=== PATIENT | male | born 1965 | race Caucasian/White ===

== ENCOUNTER → 2019-10-26 19:23 | Outpatient (ROUT) | payer OTHER, SELFPAY ==
[2019-10-26 19:49] LABS: Add Manual Diff / Slide Review NO; Basophils Absolute Auto 0 /uL (0-100); Basophils Percent Auto 0.3 % (0-2); Eosinophils Absolute Auto 100 /uL (0-450); Hemoglobin 15.2 g/dL (13.5-17.5); Lymphocytes Absolute Auto 900 /uL (1100-4500); Lymphocytes Percent Auto 15.7 % (25-40); Mean Corpuscular HGB Conc 33.7 % (30-36); Mean Corpuscular Hemoglobin 32.4 PG (26-34); Mean Corpuscular Volume 96.2 fL (80-100); Monocytes Absolute Auto 600 /uL (0-900); Monocytes Percent Auto 11.5 % (3-14); Neutrophils Absolute Auto 4000 /uL (1500-7000); Neutrophils Percent Auto 71.5 % (50-75); Platelet Count 172 X10^3/uL (150-400); Red Blood Cell Count 4.68 X10^6/uL (4.5-5.9); Red Cell Distribution Width 12.6 % (11.6-14.8); White Blood Cell Count 5.6 X10^3/uL (4.5-11.0)
[2019-10-26 19:56] LABS: Alanine Aminotransferase 56 IU/L (<50); Albumin 4.3 g/dL (3.5-5.0); Albumin Globulin Ratio 1.5 (1.0-2.8); Alkaline Phosphatase 106 U/L (38-126); Aspartate Aminotransferase 50 IU/L (17-59); BUN Creatinine Ratio 16.9 (6-22); Bilirubin Total 0.6 mg/dL (0.2-1.3); Blood Urea Nitrogen 12 mg/dL (9-20); Carbon Dioxide 25 mmol/L (22-32); Chloride 99 mmol/L (98-107); Cholesterol 199 mg/dL (140-199); Estimated Glomerular Filt Rate > 60.0 mL/min (>60); Globulin 2.8 g/dL (1.7-4.1); Glucose 121 mg/dL (70-100); HDL Cholesterol 66 mg/dL (40-60); HEMOLYSIS 22 (0-50); LDL Cholesterol Calculated 96 mg/dL (<100); Potassium 4.5 mmol/L (3.4-5.1); Sodium 133 mmol/L (137-145); Total Protein 7.1 g/dL (6.3-8.2); Triglycerides 184 mg/dL (35-150)
[2019-10-26 20:22] LABS: TSH w/ Reflex to FT4 1.74 uIU/mL (0.47-4.68)
[2019-10-26 20:23] LABS: Prostate Specific Antigen 0.425 ng/mL (0.10-4.00)
== END ==
PROVIDERS: PCP Physician Assistant; Visit Provider Internal Medicine
DX: Z00.00 Encounter for general adult medical examination without abnormal findings (principal); C81.3 Lymphocyte depleted Hodgkin lymphoma; E03.9 Hypothyroidism, unspecified
CPT/HCPCS: 80053; 80061; 84153; 84443; 85025

== ENCOUNTER 2021-06-07 00:22 | Emergency (ER) | payer OTHER, SELFPAY ==
[2021-06-07 00:29] VITALS: BP 194/103; PULSE 92; RESP 16; TEMP 36.5; O2SAT 97; BMI 27.1
--- NOTE | 2021-06-07 00:52 | ED_ITS ---
HPI - General Adult General Chief complaint: Abdominal Pain Stated complaint: RT SIDE PAIN Time Seen by Provider: 06/07/21 00:29 Source: patient Mode of arrival: Ambulatory Limitations: no limitations History of Present Illness HPI narrative: 55-year-old male who is here for evaluation of right-sided flank pain and abdominal pain. He states that throughout the day today he has had some urinary symptoms and urinary frequency and dark colored urine. He has never had a kidney stone in the past. This evening started to have increasing pain in his right side. Not made worse with palpation or movement. No fevers. No skin rashes. Has not tried anything for symptoms prior to arrival. He does state that it occasionally radiates down to his groin. Related Data Home Medications Medication Instructions Recorded Confirmed levothyroxine 50 mcg tablet 100 mcg OR QDAY #0 06/17/16 (Synthroid) metoprolol succinate 25 mg 25 mg PO QDAY #0 06/17/16 tablet,extended release 24 hr (Toprol XL) VITAMIN D (Vitamin D3) 1,000 units PO QDAY #0 06/26/16 vitamin B complex (B 1 tab PO QDAY #0 06/26/16 Complex-Vitamin B12) zinc gluconate 50 mg tablet 50 mg PO #0 06/26/16 Allergies Allergy/AdvReac Type Severity Reaction Status Date / Time No Known Drug Allergies Allergy Verified 06/07/21 00:31 Review of Systems Constitutional Constitutional: Denies fever(s) Gastrointestinal Gastrointestinal: Reports as per HPI and Reports system reviewed and no additional complaints, except as documented Genitourinary Genitourinary: Reports system reviewed and no additional complaints, except as documented and Reports as per HPI Musculoskeletal Musculoskeletal: Reports system reviewed and no additional complaints, except as documented and Reports as per HPI Integumentary/Breasts Skin/Breast: Reports system reviewed and no additional complaints, except as documented Hematologic/Lymphatic On Anticoagulants: No Patient History Medical History Hypothyroid tobacco type: smokeless tobacco alcohol intake frequency: 0-2 drinks per day Substance Use Type: does not use Exam Initial Vital Signs Initial Vital Signs: Vital Signs Temperature 97.7 F 06/07/21 00:29 Pulse Rate 92 H 06/07/21 00:29 Respiratory Rate 16 06/07/21 00:29 Blood Pressure 194/103 H 06/07/21 00:29 Pulse Oximetry 97 06/07/21 00:29 HENMT Head: normal to inspection and normocephalic Resp Effort & Inspection: normal respiratory effort Auscultation: clear to auscultation bilaterally Cardio Rate: regular rate Rhythm: regular rhythm GI Inspection: normal to inspection and non-distended Palpation: soft, No firm, No guarding and tender (Right flank) Back/Spine/Pelvis Back: No CVA tenderness Skin General: no rashes or lesions noted Neuro General: patient alert, patient awake, patient oriented x3 and moves all extremities Extrem General: normal to inspection and capillary refill normal Psych Appearance: grossly normal and well kempt Course Orders Ordered: ED Orders 06/07/21 00:53 CT kidney ureter bladder (KUB) Stat Urine Microscopic Stat 06/07/21 01:00 Basic Metabolic Panel Stat Complete Blood Count AUTO DIFF Stat Discontinued Medications Hydrocodone Bitart/Acetaminophen (Hydrocodone/Acet 5/325 Prepack) 1 bottle MISC SEEINSTR ONE Stop: 06/07/21 01:55 Last Admin: 06/07/21 02:07 Dose: 1 bottle Documented by: FLOYD Ketorolac Tromethamine (Ketorolac 30 Mg/Ml Vial) 30 mg IV NOW ONE Stop: 06/07/21 00:54 Last Admin: 06/07/21 01:10 Dose: 30 mg Documented by: CHRISTINE Ondansetron HCl (Ondansetron 4 Mg/2 Ml Inj) 4 mg IV NOW ONE Stop: 06/07/21 00:54 Last Admin: 06/07/21 01:10 Dose: 4 mg Documented by: CHRISTINE Ondansetron HCl (Ondansetron 4 Mg Odt Prepack) 1 bottle MISC SEEINSTR ONE Stop: 06/07/21 01:55 Last Admin: 06/07/21 02:07 Dose: 1 bottle Documented by: FLOYD Vital Signs Vital signs: Vital Signs - 8 hr 06/07/21 00:29 06/07/21 02:00 Temperature 97.7 F Pulse Rate 92 H 96 H Respiratory Rate 16 Blood Pressure 194/103 H 164/84 H Pulse Oximetry 97 96 Medical Decision Making Lab Data Lab results reviewed: Yes I reviewed the patient's lab results. Result diagrams: 06/07/21 01:00 06/07/21 01:00 Labs: Lab Results 06/07/21 06/07/21 06/07/21 Range/Units 00:53 01:00 01:00 WBC 10.0 (4.5-11.0) X10^3/uL RBC 4.73 (4.5-5.9) X10^6/uL Hgb 15.4 (13.5-17.5) g/dL Hct 44.7 (41-53) % MCV 94.5 (80-100) fL MCH 32.6 (26-34) PG MCHC 34.5 (30-36) % RDW 12.7 (11.6-14.8) % Plt Count 159 (150-400) X10^3/uL Neut % (Auto) 85.7 H (50-75) % Lymph % (Auto) 7.5 L (25-40) % [place] % (Auto) 6.1 (3-14) % Eos % (Auto) 0.3 L (2-4) % Baso % (Auto) 0.4 (0-2) % Neut # (Auto) 8500 H (4644-6822) /uL Lymph # (Auto) 700 L (0156-6110) /uL [place] # (Auto) 600 (0-900) /uL Eos # (Auto) 0 (0-450) /uL Baso # (Auto) 0 (0-100) /uL Sodium 139 (137-145) mmol/L Potassium 4.2 (3.4-5.1) mmol/L Chloride 101 (98-107) mmol/L Carbon Dioxide 30 (22-32) mmol/L BUN 20 (9-20) mg/dL Creatinine 0.99 (0.66-1.25) mg/dL Estimated GFR > 60 (>60) mL/min BUN/Creatinine Ratio 20.2 (6-22) Glucose 169 H (70-100) mg/dL Calcium 9.3 (8.4-10.2) mg/dL Urine RBC 1-5/hpf (0-5/HPF) Urine WBC None seen (0-5/HPF) Amorphous Sediment 2+ Urine Bacteria None seen (None) Ur Culture Indicated? Cult not indicated Urine Dip Bedside Urine Glucose Negative Bedside Urine Bilirubin - Negative Bedside Urine Ketone +/- 5 Urine Specific [place] 1.015 Bedside Urine Occult Blood ++ Bedside Urine pH 7.5 Bedside Urine Protein - Negative Bedside Urine Urobilinogen - Negative Bedside Urine Nitrite - Negative Bedside Urine Leukocytes - Negative Esterase Point of care testing: Urine Dip Bedside Urine Glucose Negative Bedside Urine Bilirubin - Negative Bedside Urine Ketone +/- 5 Urine Specific [place] 1.015 Bedside Urine Occult Blood ++ Bedside Urine pH 7.5 Bedside Urine Protein - Negative Bedside Urine Urobilinogen - Negative Bedside Urine Nitrite - Negative Bedside Urine Leukocytes - Negative Esterase Imaging Data CT scan - abdomen/pelvis: Radiologist's Impression: [address] [address] [address] Scan Report Signed Patient: Qiuque Jackson MR#: [id number] : 1965 Acct:[id number] Age/Sex: 55 / M Date of Service: 06/07/21 Loc: ED Accession Number: [id number] ?? Procedure: CT kidney ureter bladder (KUB) Ordering Provider: Golden Blankenship D.O. PROCEDURE:? CT KIDNEY URETER BLADDER (KUB) ? INDICATIONS:? R sided flank pain eval for stone ? TECHNIQUE:? Axial sections were acquired from the lung bases to the pubic symphysis.? Coronal and sagittal reformats were performed.? For radiation dose reduction, the following was used: ?automated exposure control, adjustment of mA and/or kV according to patient size.? ? COMPARISON:? None. ? FINDINGS:? Image quality:? Excellent.? ? Lung bases:? Unremarkable.? ? Heart:? No significant findings. ? URINARY: Right Kidney: ? Suspect mild hydronephrosis.? No stones.? Perinephric stranding.? Right Ureter:? Stone which has passed through the right UVJ measuring 0.3 cm, ().? Mild stranding surrounding the ureter. ? Left Kidney: ? No stones or definite hydronephrosis.? Probable peripancreatic cysts. Left Ureter:? No hydroureter.? ? Bladder:? Bladder wall appears mildly thickened.? Stone near the right UVJ. ? ABDOMEN: Liver:? Hepatic steatosis.? ? Gallbladder:? Not distended.? Gallstone. Biliary ducts:? Unremarkable.? ? Pancreas:? Unremarkable.? ? Spleen:? Unremarkable.? ? Adrenal Glands:? No nodule.? ? ? Stomach and Bowel:? Stomach, small bowel loops, and colon are unremarkable.? The appendix is not dilated.? There is an appendiculolith measuring 0.7 cm, ().? Diverticulosis.? Peritoneum:? No abnormal intraperitoneal fluid.? No free air.? ? Ventral Wall: ? No hernia.? Abdominal Nodes:? No enlarged retroperitoneal or mesenteric lymph nodes.? Vessels:? Aorta and inferior vena cava are normal in size.? Moderate calcified plaque. ? PELVIS: Pelvic Organs:? Unremarkable.? ? Pelvic Nodes: Unremarkable. Miscellaneous: No inguinal hernias are seen. ? ? ? Bones:? No suspicious lesion.? DDD. ? IMPRESSION:? 1. Kidney stone which has passed through the right UVJ measuring 0.3 cm. Mild right hydroureteronephrosis. ? 2. Appendiculoith measuring 0.7 cm.? Appendix is not dilated.? No periappendiceal inflammatory change. ? 3. Cholelithiasis.? Hepatic steatosis. ? ? ? Dictated by: Jan Norman M.D. on 06/07/2021 at 1:21 ? ? Approved by: Jan Norman M.D. on 06/07/2021 at 1:31 MDM Narrative Medical decision making narrative: Patient is nontoxic appearing. Urinalysis has blood but no signs of infection. Labs are unremarkable. CT scan shows a right-sided ureteral stone which explains his presenting symptoms. I have low suspicion for appendicitis given his presentation. I did discuss the findings of the CT scan with him. We discussed return precautions and follow-up instructions. Patient be safely discharged home with symptom treatment. He expressed understanding and agreement. Discharge Plan Departure Patient Disposition: Home Clinical Impression: Renal colic on right side Instructions: Kidney Stones -- Adult Activity Restrictions/Additional Instructions: Continue to take all of your medications as directed. Use the nausea medication and pain medicine as needed. Contact your primary doctor for a follow-up. Return to the emergency department for any new or worsening symptoms. Prescriptions: No Action levothyroxine [Synthroid] 50 MCG tablet 100 mcg OR QDAY Qty: 0 0RF metoprolol succinate [Toprol XL] 25 MG tablet extended release 24 hr 25 mg PO QDAY Qty: 0 0RF vitamin B complex [B Complex-Vitamin B12] 1 EACH tablet 1 tab PO QDAY Qty: 0 0RF VITAMIN D (Vitamin D3) 1,000 units PO QDAY Qty: 0 0RF zinc gluconate 50 MG tablet 50 mg PO Qty: 0 0RF Referrals: Deandra Fatima PA-C [Primary Care Provider] -
--- NOTE | 2021-06-07 00:53 | DI.CT.S_ITS ---
PROCEDURE: CT KIDNEY URETER BLADDER (KUB) INDICATIONS: R sided flank pain eval for stone TECHNIQUE: Axial sections were acquired from the lung bases to the pubic symphysis. Coronal and sagittal reformats were performed. For radiation dose reduction, the following was used: automated exposure control, adjustment of mA and/or kV according to patient size. COMPARISON: None. FINDINGS: Image quality: Excellent. Lung bases: Unremarkable. Heart: No significant findings. URINARY: Right Kidney: Suspect mild hydronephrosis. No stones. Perinephric stranding. Right Ureter: Stone which has passed through the right UVJ measuring 0.3 cm, (279). Mild stranding surrounding the ureter. Left Kidney: No stones or definite hydronephrosis. Probable peripancreatic cysts. Left Ureter: No hydroureter. Bladder: Bladder wall appears mildly thickened. Stone near the right UVJ. ABDOMEN: Liver: Hepatic steatosis. Gallbladder: Not distended. Gallstone. Biliary ducts: Unremarkable. Pancreas: Unremarkable. Spleen: Unremarkable. Adrenal Glands: No nodule. Stomach and Bowel: Stomach, small bowel loops, and colon are unremarkable. The appendix is not dilated. There is an appendiculolith measuring 0.7 cm, (263). Diverticulosis. Peritoneum: No abnormal intraperitoneal fluid. No free air. Ventral Wall: No hernia. Abdominal Nodes: No enlarged retroperitoneal or mesenteric lymph nodes. Vessels: Aorta and inferior vena cava are normal in size. Moderate calcified plaque. PELVIS: Pelvic Organs: Unremarkable. Pelvic Nodes: Unremarkable. Miscellaneous: No inguinal hernias are seen. Bones: No suspicious lesion. DDD. IMPRESSION: 1. Kidney stone which has passed through the right UVJ measuring 0.3 cm. Mild right hydroureteronephrosis. 2. Appendiculoith measuring 0.7 cm. Appendix is not dilated. No periappendiceal inflammatory change. 3. Cholelithiasis. Hepatic steatosis. Dictated by: Jan Norman M.D. on 06/07/2021 at 1:21 Approved by: Jan Norman M.D. on 06/07/2021 at 1:31
[2021-06-07] MEDS: ONDANSETRON 4 MG/2 ML INJ IV (01:10)
[2021-06-07] MEDS: KETOROLAC 30 MG/ML VIAL IV (01:10)
[2021-06-07 01:14] LABS: Amorphous Sediment Urine 2+; Bacteria Urine None Seen; Culture Indicated Urine Cult Not Indicated; RBC Urine 1-5/HPF (0-5/HPF); WBC Urine None Seen (0-5/HPF)
[2021-06-07 01:14] LABS: Add Manual Diff / Slide Review NO; Basophils Absolute Auto 0 /uL (0-100); Basophils Percent Auto 0.4 % (0-2); Eosinophils Absolute Auto 0 /uL (0-450); Eosinophils Percent Auto 0.3 % (2-4); Hematocrit 44.7 % (41-53); Hemoglobin 15.4 g/dL (13.5-17.5); Lymphocytes Absolute Auto 700 /uL (1100-4500); Lymphocytes Percent Auto 7.5 % (25-40); Mean Corpuscular HGB Conc 34.5 % (30-36); Mean Corpuscular Hemoglobin 32.6 PG (26-34); Mean Corpuscular Volume 94.5 fL (80-100); Monocytes Absolute Auto 600 /uL (0-900); Monocytes Percent Auto 6.1 % (3-14); Neutrophils Absolute Auto 8500 /uL (1500-7000); Neutrophils Percent Auto 85.7 % (50-75); Platelet Count 159 X10^3/uL (150-400); Red Blood Cell Count 4.73 X10^6/uL (4.5-5.9); Red Cell Distribution Width 12.7 % (11.6-14.8)
[2021-06-07 01:19] LABS: BUN Creatinine Ratio 20.2 (6-22); Blood Urea Nitrogen 20 mg/dL (9-20); Calcium 9.3 mg/dL (8.4-10.2); Carbon Dioxide 30 mmol/L (22-32); Chloride 101 mmol/L (98-107); Estimated Glomerular Filt Rate > 60 mL/min (>60); Glucose 169 mg/dL (70-100); HEMOLYSIS < 15 (0-50); Potassium 4.2 mmol/L (3.4-5.1); Sodium 139 mmol/L (137-145)
[2021-06-07 02:00] VITALS: BP 164/84; PULSE 96; O2SAT 96
[2021-06-07] MEDS: ONDANSETRON 4 MG ODT PREPACK 1 BOTTLE MISC (02:07)
[2021-06-07] MEDS: HYDROCODONE/ACET 5/325 PREPACK 1 BOTTLE MISC (02:07)
== END 2021-06-07 02:09 | disposition home or self-care (01) ==
PROVIDERS: Emergency Provider Emergency Medicine; PCP Physician Assistant
DX: N20.1 Calculus of ureter (principal); F17.290 Nicotine dependence, other tobacco product, uncomplicated
CPT/HCPCS: 36415; 74176; 80048; 81003; 81015; 85025; 96374; 96375; 99283; 99284; J1885; J2405

== ENCOUNTER → 2021-10-19 06:38 | Outpatient (CLI) | payer OTHER, SELFPAY ==
--- NOTE | 2021-10-19 06:41 | DI.US.S_ITS ---
PROCEDURE: US CAROTID DOPPLER BI INDICATIONS: Screening for cardiovascular disorder TECHNIQUE: Color and pulse Doppler interrogation was performed of both carotid systems, with image documentation and velocity measurements. COMPARISON: None. FINDINGS: Stenosis calculations are based on SRU (Society of Radiologists in Ultrasound) criteria. Right side: Brachial blood pressure: 198/107 mm Hg. Common carotid artery peak systolic velocity: 84 cm/sec. Internal carotid artery peak systolic velocity: 132 cm/sec. Internal carotid artery end diastolic velocity: 33 cm/sec. External carotid artery peak systolic velocity: 318 cm/sec. ICA/CCA peak systolic ratio: 1.6 Brown scale imaging description: Mild atherosclerotic changes are seen. Percent internal carotid artery stenosis: 50-69% by velocity criteria. Vertebral artery: Flow direction is antegrade. Left side: Brachial blood pressure: 180/97 mm Hg. Common carotid artery peak systolic velocity: 121 cm/sec. Internal carotid artery peak systolic velocity: 88 cm/sec. Internal carotid artery end diastolic velocity: 20 cm/sec. External carotid artery peak systolic velocity: 143 cm/sec. ICA/CCA peak systolic ratio: 0.7 Brown scale imaging description: Minimal atherosclerotic change can be seen. Percent internal carotid artery stenosis: Less than 50% by velocity criteria Vertebral artery: Flow direction is antegrade. IMPRESSION: By velocity criteria, there is a moderate stenosis (between 50 and 69% stenosis) within the right proximal internal carotid artery. The true degree of stenosis is felt most likely to be at the lower end of this range. Prominently elevated blood pressures, with the right brachial blood pressure measuring 198/107. Greater than 50% stenosis of the right external carotid artery. Note: After consulting with the ordering physician's office, this patient was sent to the emergency department for the elevated blood pressures. Dictated by: Ugo Mabry M.D. on 10/19/2021 at 8:24 Approved by: Ugo Mabry M.D. on 10/19/2021 at 8:26
== END ==
PROVIDERS: PCP Student in an Organized Health Care Education/Training Program; Referring Provider Student in an Organized Health Care Education/Training Program; Visit Provider Student in an Organized Health Care Education/Training Program
DX: Z13.6 Encounter for screening for cardiovascular disorders (principal); I65.21 Occlusion and stenosis of right carotid artery; R03.0 Elevated blood-pressure reading, without diagnosis of hypertension
CPT/HCPCS: 93880

== ENCOUNTER 2021-10-19 07:28 | Emergency (ER) | payer OTHER, SELFPAY ==
[2021-10-19 07:30] VITALS: BP 229/122; PULSE 83; RESP 14; TEMP 36.4; O2SAT 98; BMI 27.1
--- NOTE | 2021-10-19 07:41 | ED_ITS ---
HPI - General Adult General Chief complaint: Hypertension Stated complaint: Extremely High BP- sent by DI Time Seen by Provider: 10/19/21 07:30 Source: patient Mode of arrival: Ambulatory History of Present Illness HPI narrative: 55-year-old male. History hypothyroid. Was seen in the emergency department several months ago for right-sided renal colic. On Friday of this week he went to go see his primary doctor. This was a scheduled visit. It was noted that his blood pressure was elevated. He was told to check his blood pressures at home and he was to have a follow-up appointment in approximately 1 month. He has been taking his pressures at home and they state that they have all been very elevated. He also states that during that visit the provider noticed a ?whooshing? sound in his neck so a carotid ultrasound was ordered. He had that performed this morning. It was noted during the carotid ultrasound that his blood pressure was elevated. He was told to come to the emergency department for evaluation. He currently has no symptoms. His medicine list has metoprolol listed but he states he does not take this medication. Patient denies headache, vision changes, chest pain, shortness of breath, abdominal pain, lower extremity swelling or any other symptoms. Related Data Home Medications Medication Instructions Recorded Confirmed levothyroxine 50 mcg tablet 100 mcg OR QDAY ##0 06/17/16 (Synthroid) VITAMIN D (Vitamin D3) 1,000 units PO QDAY ##0 06/26/16 vitamin B complex (B 1 tab PO QDAY ##0 06/26/16 Complex-Vitamin B12 tablet) zinc gluconate 50 mg tablet 50 mg PO ##0 06/26/16 Previous Rx's Medication Instructions Recorded lisinopril 10 mg tablet 10 mg PO DAILY #30 tabs 10/19/21 Allergies Allergy/AdvReac Type Severity Reaction Status Date / Time No Known Drug Allergies Allergy Verified 10/19/21 07:38 Review of Systems Review of Systems ROS Unobtainable: All systems reviewed & are unremarkable except as noted in HPI and below Patient History Medical History Hypothyroid Social History Smoking Status: Never smoker Smoking Status: Never smoker tobacco type: smokeless tobacco alcohol intake frequency: 3 or more drinks per day Substance Use Type: does not use Exam Initial Vital Signs Initial Vital Signs: Vital Signs Temperature 97.6 F 10/19/21 07:30 Pulse Rate 83 10/19/21 07:30 Respiratory Rate 14 10/19/21 07:30 Blood Pressure 229/122 H 10/19/21 07:30 Pulse Oximetry 98 10/19/21 07:30 Oxygen Delivery Method 10/19/21 07:30 Const General: cooperative, healthy appearing and comfortable [facility] Head: normal to inspection Resp Effort & Inspection: normal respiratory effort Auscultation: clear to auscultation bilaterally Cardio Rate: regular rate Rhythm: regular rhythm Skin General: no rashes or lesions noted Neuro General: patient alert, patient awake, patient oriented x3 and moves all extremities Extrem General: No edema Psych Appearance: grossly normal and well kempt Course Orders Ordered: ED Orders 10/19/21 07:41 Basic Metabolic Panel Stat Complete Blood Count AUTO DIFF Stat EKG-12 Lead Stat Vital Signs Vital signs: Vital Signs - 8 hr 10/19/21 07:30 Temperature 97.6 F Pulse Rate 83 Respiratory Rate 14 Blood Pressure 229/122 H Pulse Oximetry 98 Oxygen Delivery Method Room Air Medical Decision Making Lab Data Result diagrams: 10/19/21 07:40 10/19/21 07:40 Labs: Lab Results 10/19/21 10/19/21 Range/Units 07:40 07:40 WBC 5.1 (4.5-11.0) X10^3/uL RBC 5.01 (4.5-5.9) X10^6/uL Hgb 16.2 (13.5-17.5) g/dL Hct 48.0 (41-53) % MCV 95.8 (80-100) fL MCH 32.3 (26-34) PG MCHC 33.7 (30-36) % RDW 12.7 (11.6-14.8) % Plt Count 180 (150-400) X10^3/uL Neut % (Auto) 64.9 (50-75) % Lymph % (Auto) 18.4 L (25-40) % [place] % (Auto) 13.2 (3-14) % Eos % (Auto) 2.8 (2-4) % Baso % (Auto) 0.7 (0-2) % Neut # (Auto) 3300 (3477-4585) /uL Lymph # (Auto) 900 L (0052-3107) /uL [place] # (Auto) 700 (0-900) /uL Eos # (Auto) 100 (0-450) /uL Baso # (Auto) 0 (0-100) /uL Sodium 137 (137-145) mmol/L Potassium 5.0 (3.4-5.1) mmol/L Chloride 106 (98-107) mmol/L Carbon Dioxide 26 (22-32) mmol/L BUN 14 (9-20) mg/dL Creatinine 0.74 (0.66-1.25) mg/dL Estimated GFR > 60 (>60) mL/min BUN/Creatinine Ratio 18.9 (6-22) Glucose 136 H (70-100) mg/dL Calcium 9.0 (8.4-10.2) mg/dL ECG Data Attestation: I personally reviewed and interpreted this ECG as follows: Interpretation: Sinus rhythm Ventricular rate 81 Left axis deviation LVH No ST T wave changes MDM Narrative Medical decision making narrative: Patient has asymptomatic hypertension. His labs today are unremarkable. EKG shows LVH. Had an appointment earlier this week with his primary doctors blood pressure was elevated in his currently just monitoring it. Without any specific intervention his blood pressure improved from a systolic of 220s and diastolic of 120s to a systolic in the 180s. Will start the patient on lisinopril. This was sent to the pharmacy of his choice. We did discuss his blood pressure and blood pressure medication. He will continue to take his blood pressure at home and contact his primary doctor for follow-up. Discharge Plan Departure Patient Disposition: Home Clinical Impression: Hypertension Instructions: DI for High Blood Pressure Activity Restrictions/Additional Instructions: A prescription for a new blood pressure medication was transmitted to [facility]. Please start taking it as directed. Continue to take your blood pressure at home like we discussed in contact your primary doctor for a follow-up. Prescriptions: New lisinopril 10 mg tablet 10 mg PO DAILY Qty: 30 0RF No Action levothyroxine [Synthroid] 50 MCG tablet 100 mcg OR QDAY Qty: 0 vitamin B complex [B Complex-Vitamin B12] 1 EACH tablet 1 tab PO QDAY Qty: 0 VITAMIN D (Vitamin D3) 1,000 units PO QDAY Qty: 0 zinc gluconate 50 MG tablet 50 mg PO Qty: 0 Referrals: Elizabeth Uribe PA-C [Primary Care Provider] -
[2021-10-19 07:58] LABS: Add Manual Diff / Slide Review NO; Basophils Absolute Auto 0 /uL (0-100); Basophils Percent Auto 0.7 % (0-2); Eosinophils Absolute Auto 100 /uL (0-450); Eosinophils Percent Auto 2.8 % (2-4); Hemoglobin 16.2 g/dL (13.5-17.5); Lymphocytes Absolute Auto 900 /uL (1100-4500); Lymphocytes Percent Auto 18.4 % (25-40); Mean Corpuscular HGB Conc 33.7 % (30-36); Mean Corpuscular Hemoglobin 32.3 PG (26-34); Mean Corpuscular Volume 95.8 fL (80-100); Monocytes Absolute Auto 700 /uL (0-900); Monocytes Percent Auto 13.2 % (3-14); Neutrophils Absolute Auto 3300 /uL (1500-7000); Neutrophils Percent Auto 64.9 % (50-75); Platelet Count 180 X10^3/uL (150-400); Red Blood Cell Count 5.01 X10^6/uL (4.5-5.9); Red Cell Distribution Width 12.7 % (11.6-14.8); White Blood Cell Count 5.1 X10^3/uL (4.5-11.0)
[2021-10-19 08:03] LABS: BUN Creatinine Ratio 18.9 (6-22); Blood Urea Nitrogen 14 mg/dL (9-20); Carbon Dioxide 26 mmol/L (22-32); Chloride 106 mmol/L (98-107); Estimated Glomerular Filt Rate > 60 mL/min (>60); Glucose 136 mg/dL (70-100); HEMOLYSIS 61 (0-50); Sodium 137 mmol/L (137-145)
== END 2021-10-19 08:38 | disposition home or self-care (01) ==
PROVIDERS: Emergency Provider Emergency Medicine; PCP Student in an Organized Health Care Education/Training Program
DX: I10 Essential (primary) hypertension (principal); Z13.6 Encounter for screening for cardiovascular disorders; I65.21 Occlusion and stenosis of right carotid artery
CPT/HCPCS: 80048; 85025; 93005; 93880; 99281; 99284

== ENCOUNTER 2022-04-23 12:30 | Emergency (ER) | payer OTHER, SELFPAY ==
[2022-04-23 12:47] VITALS: BP 157/74; PULSE 108; RESP 18; TEMP 36.8; O2SAT 100; BMI 25.0
[2022-04-23 13:43] LABS: Bacteria Urine Occasional (0-1); Culture Indicated Urine Specimen Cultured; RBC Urine 5-10/HPF (0-5/HPF); Squamous Epithelial Cell Urine 1-5 /HPF (0-5/HPF); WBC Urine 5-10/HPF (0-5/HPF)
[2022-04-23 15:39] LABS: Alanine Aminotransferase 39 IU/L (<50); Albumin 4.6 g/dL (3.5-5.0); Albumin Globulin Ratio 1.6 (1.0-2.8); Alkaline Phosphatase 100 U/L (38-126); Aspartate Aminotransferase 35 IU/L (17-59); BUN Creatinine Ratio 22.5 (6-22); Bilirubin Total 0.7 mg/dL (0.2-1.3); Blood Urea Nitrogen 16 mg/dL (9-20); Calcium 9.4 mg/dL (8.4-10.2); Carbon Dioxide 27 mmol/L (22-32); Chloride 100 mmol/L (98-107); Estimated Glomerular Filt Rate > 60 mL/min (>60); Globulin 2.9 g/dL (1.7-4.1); Glucose 97 mg/dL (70-100); HEMOLYSIS < 15 (0-50); Lipase 26 U/L (23-300); Potassium 4.9 mmol/L (3.4-5.1); Sodium 135 mmol/L (137-145); Total Protein 7.5 g/dL (6.3-8.2)
[2022-04-23 16:12] LABS: Add Manual Diff / Slide Review NO; Basophils Absolute Auto 0 /uL (0-100); Basophils Percent Auto 0.3 % (0-2); Eosinophils Absolute Auto 0 /uL (0-450); Eosinophils Percent Auto 0.5 % (2-4); Hematocrit 44.6 % (41-53); Hemoglobin 15.1 g/dL (13.5-17.5); Lymphocytes Absolute Auto 1000 /uL (1100-4500); Lymphocytes Percent Auto 11.1 % (25-40); Mean Corpuscular HGB Conc 33.8 % (30-36); Mean Corpuscular Hemoglobin 31.1 PG (26-34); Monocytes Absolute Auto 800 /uL (0-900); Neutrophils Absolute Auto 7000 /uL (1500-7000); Neutrophils Percent Auto 79.1 % (50-75); Platelet Count 184 X10^3/uL (150-400); Red Blood Cell Count 4.85 X10^6/uL (4.5-5.9); Red Cell Distribution Width 13.6 % (11.6-14.8); White Blood Cell Count 8.8 X10^3/uL (4.5-11.0)
--- NOTE | 2022-04-23 17:13 | ED_ITS ---
HPI - Abdominal Pain General Chief Complaint: Abdominal Pain Stated Complaint: Dark Urine, lower abd pain Time Seen by Provider: 04/23/22 17:05 Source: patient Mode of arrival: Ambulatory History of Present Illness HPI narrative: Patient here for constant lower abdominal suprapubic pain for the past 2 or 3 weeks. Has had intermittent hematuria and dark urine. No nausea or vomiting. No bloody stools. No fever. No flank or back pain. No chest pain. Patient has history of kidney stones but states does not feel like that. Patient was seen here May 2021 for kidney stone. He recently did see his urologist, he thinks it is Dr. Krueger. No history of hernia. According to his visit with Dr. Krueger last month he encouraged tobacco cessation, CT scan abdomen pelvis with and without contrast. As well as flexible cystoscopy for these complaints Notes below are from office visit with Dr. Krueger HPI Chief Complaint Chief Complaint: Hematuria (gross and microscopic persistent) Add'l Complaint: Tobacco use, history of bladder infection a long time ago, 1 episode of hematospermia, history of kidney stone past the end of May, lower urinary tract symptoms HPI Details: This 56-year-old male comes [facility] as a new patient with complaint of hematuria.? Patient reports that the January morning he awoke and voided bloody urine.? He drank water and this seemed to steve he reports since then about every 10 days he has ?dark urine?.? He has no symptoms with these episodes.? He did have 1 episode with a climax where he had pink semen about a month ago.? He does report a ?weird sensation in his penis? cough also of late has had some dysuria this does not appear to be associated with the episodes of hematuria.? His postvoid residual today is 52 and his urine shows blood but no sign of infection and has a good specific gravity.? Patient denies history of surgery on the genitourinary system.? He had a PSA done 01/22/2022 which is 0.35.? Unsure of anything that makes things better or worse has never had anything like this before. Plan Assessment and plan:? Gross and microscopic hematuria persistent.? Tobacco use, irritative voiding symptoms plan CT scan abdomen and pelvis with and without contrast and flexible cystoscopy. Related Data Home Medications Medication Instructions Recorded Confirmed levothyroxine 50 mcg tablet 100 mcg OR QDAY ##0 06/17/16 04/04/22 (Synthroid) VITAMIN D (Vitamin D3) 1,000 units PO QDAY ##0 06/26/16 04/04/22 vitamin B complex (B 1 tab PO QDAY ##0 06/26/16 04/04/22 Complex-Vitamin B12 tablet) zinc gluconate 50 mg tablet 50 mg PO ##0 06/26/16 04/04/22 atorvastatin 20 mg tablet 20 mg PO DAILY 04/04/22 04/04/22 Previous Rx's Medication Instructions Recorded lisinopril 10 mg tablet 10 mg PO DAILY #30 tabs 10/19/21 hydrocodone 5 mg-acetaminophen 325 1 tab PO Q6H PRN pain #12 tabs 04/23/22 mg tablet ondansetron 4 mg disintegrating 4 mg PO Q8H PRN nausea and 04/23/22 tablet vomiting #10 tabs tamsulosin 0.4 mg capsule 0.4 mg PO DAILY #7 caps 04/23/22 Allergies Allergy/AdvReac Type Severity Reaction Status Date / Time No Known Drug Allergies Allergy Verified 04/04/22 12:47 Review of Systems Review of Systems Narrative: GENERAL: negative chills, fatigue, malaise, fever, sweats. HEENT: negative sinus pain, ear pain, sore throat RESPIRATORY: negative dyspnea, cough CARDIOVASCULAR: negative chest pain, palpitations GASTROINTESTINAL: negative nausea, vomiting, positive abdominal pain : Positive dysuria, frequency, hematuria MUSCULOSKELETAL: negative muscle or bony pain SKIN: negative rash, skin lesions NEUROLOGIC: negative weakness, numbness ROS Unobtainable: All systems reviewed & are unremarkable except as noted in HPI and below Patient History Medical History Cancer Gross hematuria History of kidney stones History of urinary tract infection Hyperlipemia Hypothyroid Kidney stones Tobacco use Family History Father Hearing impairment Social History marital status: unmarried,single number of children: 0 Smoking Status: Never smoker Smoking Status: Never smoker tobacco type: smokeless tobacco alcohol intake frequency: a few times a week Substance Use Type: does not use Exam Narrative Exam Narrative: GENERAL: in no distress, not toxic not dyspneic HEAD: Normocephalic. EYES: Pupils equal round ENT: Mucous membranes moist. NECK: Trachea midline. CARDIOVASCULAR: Regular rate and rhythm without murmurs RESPIRATORY: Clear to auscultation. Breath sounds equal bilaterally. No wheezes, rales, or rhonchi. GASTROINTESTINAL: Abdomen soft, non-tender : Nontender penis and testicles. Patient is circumcised. No palpable inguinal hernia. No palpable hernia with digital scrotal exam. Abdomen is nontender. No CVA tenderness EXTREMITIES: No gross deformities. BACK: No flank tenderness. NEURO: AOx4. SKIN: Warm and dry PSYCH: Not anxious, is cooperative Initial Vital Signs Initial Vital Signs: Vital Signs Temperature 98.3 F 04/23/22 12:47 Pulse Rate 108 H 04/23/22 12:47 Respiratory Rate 18 04/23/22 12:47 Blood Pressure 157/74 H 04/23/22 12:47 Pulse Oximetry 100 04/23/22 12:47 Oxygen Delivery Method Room Air 04/23/22 12:47 Course Orders Ordered: Discontinued Medications Sodium Chloride (Normal Saline 0.9%) 500 mls @ 1,000 mls/hr IV BOLUS ONE Stop: 04/23/22 17:41 Last Infusion: 04/23/22 17:44 Dose: 0 mls/hr Documented By: Admin: 04/23/22 17:20 Dose: 1,000 mls/hr Documented By: KIMBERLY Ketorolac Tromethamine (Ketorolac 30 Mg/Ml Vial) 15 mg IV NOW ONE Stop: 04/23/22 19:00 Last Admin: 04/23/22 19:14 Dose: 15 mg Documented By: CHRISTOPHER Ondansetron HCl (Ondansetron 4 Mg Odt) 4 mg PO NOW PRN PRN Reason: Nausea And Vomiting Ondansetron HCl (Ondansetron 4 Mg/2 Ml Inj) 4 mg IV NOW PRN PRN Reason: Nausea And Vomiting Tamsulosin HCl (Tamsulosin 0.4 Mg Capsule) 0.4 mg PO NOW ONE Stop: 04/23/22 19:00 Last Admin: 04/23/22 19:15 Dose: 0.4 mg Documented By: CHRISTOPHER Vital Signs Vital signs: Vital Signs - 8 hr 04/23/22 12:47 Temperature 98.3 F Pulse Rate 108 H Respiratory Rate 18 Blood Pressure 157/74 H Pulse Oximetry 100 Oxygen Delivery Method Room Air MDM - Abdominal Pain Lab Data 04/23/22 13:00 04/23/22 13:00 Labs: Lab Results 04/23/22 04/23/22 04/23/22 Range/Units 13:00 13:00 13:17 WBC 8.8 (4.5-11.0) X10^3/uL RBC 4.85 (4.5-5.9) X10^6/uL Hgb 15.1 (13.5-17.5) g/dL Hct 44.6 (41-53) % MCV 92.0 (80-100) fL MCH 31.1 (26-34) PG MCHC 33.8 (30-36) % RDW 13.6 (11.6-14.8) % Plt Count 184 (150-400) X10^3/uL Neut % (Auto) 79.1 H (50-75) % Lymph % (Auto) 11.1 L (25-40) % [place]lier % (Auto) 9.0 (3-14) % Eos % (Auto) 0.5 L (2-4) % Baso % (Auto) 0.3 (0-2) % Neut # (Auto) 7000 (0008-6320) /uL Lymph # (Auto) 1000 L (0846-3252) /uL [place]lier # (Auto) 800 (0-900) /uL Eos # (Auto) 0 (0-450) /uL Baso # (Auto) 0 (0-100) /uL Sodium 135 L (137-145) mmol/L Potassium 4.9 (3.4-5.1) mmol/L Chloride 100 (98-107) mmol/L Carbon Dioxide 27 (22-32) mmol/L BUN 16 (9-20) mg/dL Creatinine 0.71 (0.66-1.25) mg/dL Estimated GFR > 60 (>60) mL/min BUN/Creatinine Ratio 22.5 H (6-22) Glucose 97 (70-100) mg/dL Calcium 9.4 (8.4-10.2) mg/dL Total Bilirubin 0.7 (0.2-1.3) mg/dL AST 35 (17-59) IU/L ALT 39 (<50) IU/L Alkaline Phosphatase 100 (38-126) U/L Total Protein 7.5 (6.3-8.2) g/dL Albumin 4.6 (3.5-5.0) g/dL Globulin 2.9 (1.7-4.1) g/dL Albumin/Globulin Ratio 1.6 (1.0-2.8) Lipase 26 (23-300) U/L Urine RBC 5-10/hpf H (0-5/HPF) Urine WBC 5-10/hpf H (0-5/HPF) Ur Squamous Epith Cells 1-5 /hpf (0-5/HPF) Urine Bacteria Occasional (0-1) (None) Ur Culture Indicated? Specimen cultured Point of care testing: Urine Dip Bedside Urine Glucose Negative Bedside Urine Bilirubin - Negative Bedside Urine Ketone - Negative Urine Specific [place] 1.010 Bedside Urine Occult Blood +++ Bedside Urine pH 6.0 Bedside Urine Protein - Negative Bedside Urine Urobilinogen - Negative Bedside Urine Nitrite - Negative Bedside Urine Leukocytes - Negative Esterase Imaging Data CT scan - abdomen/pelvis: Radiologist's Impression: PROCEDURE:? CT ABDOMEN PELVIS WO/W CON ? INDICATIONS:? Lower abdominal pain ? TECHNIQUE:? After the administration of oral contrast, 5 mm thick sections acquired from the diaphragms to the iliac crests.? After the administration of intravenous contrast, 5 mm thick sections acquired from the diaphragms to the symphysis.? 5 mm thick coronal and sagittal reformats were acquired.? For radiation dose reduction, the following was used:? automated exposure control, adjustment of mA and/or kV according to patient size.? ? COMPARISON:? None. ? FINDINGS: Image quality:? Excellent.? ? Lung bases:? Lung bases are clear.? Heart size is normal. ? Solid organs:? Liver: The liver has no mass or intrahepatic biliary ductal dilatation. The portal vein and hepatic veins are patent. Biliary:? Gallstone in the gallbladder.? No wall thickening or pericholecystic fluid.? Pancreas: The pancreas has no mass or ductal dilatation. There is no surrounding inflammation. Spleen: Normal size. There are no masses. Adrenals: No hypertrophy or nodules. Kidneys:? 4 millimeter stone in the right distal ureter with mild right hydroureteronephrosis.? ? No solid mass. No cystic mass. ? Peritoneum and bowel:? The distal esophagus and stomach are normal.? The small bowel has a normal caliber and appearance. The terminal ileum is normal. The large bowel has diverticulosis with no evidence of diverticulitis.? The appendix is normal. No free fluid or air.? ? Nodes and vessels:? No retroperitoneal or mesenteric adenopathy by size criteria.? Aorta and inferior vena cava are normal in size.? ? Miscellaneous:? No abdominal wall mass or hernia. ? PELVIS:? Genitourinary:? The bladder has no wall thickening or mass. No bladder calcifications. ? Bones:? Degenerative changes at L5-S1.? No suspicious bony lesions.? No vertebral body compression fractures.? ? IMPRESSION:? 4 millimeter right distal ureteral stone with mild right hydroureteronephrosis. ? Dictated by: Marty Crain M.D. on 04/23/2022 at 17:47 ? ? Approved by: Marty Crain M.D. on 04/23/2022 at 17:52 ? [facility] Narrative Medical decision making narrative: Patient here for constant lower abdominal suprapubic pain for the past 2 or 3 weeks. Has had intermittent hematuria and dark urine. No nausea or vomiting. No bloody stools. No fever. No flank or back pain. No chest pain. Patient has history of kidney stones but states does not feel like that. Patient was seen here May 2021 for kidney stone. He recently did see his urologist, he thinks it is Dr. Krueger. No history of hernia. According to his visit with Dr. Krueger last month he encouraged tobacco cessation, CT scan abdomen pelvis with and without contrast. As well as flexible cystoscopy for these complaints After history and exam CBC CMP urinalysis CT abdomen pelvis with and without contrast/normal saline ordered [facility] CC: Dysuria/hematuria/abdominal pain Complicating co-morbidities: History of kidney stones Data collected from: Patient Medical records reviewed: Office visit 1 month ago with Urology Differential considered: Includes but not limited to UTI diverticulitis kidney stone Exam documented above, pertinent findings include: Nontender pelvis/abdomen. Lab Test results independently reviewed as above. Pertinent findings: WBC 8.8 hemoglobin 15 hematocrit 46 platelet 184 sodium 135 potassium 4.9 BUN 16 creatinine 0.7 GFR greater than 60, urinalysis RBC 5-10 Imaging studies independently reviewed: CT IVP impression 4 mm distal right ureteral stone with mild hydronephrosis Consultations: s/w dr james and dr krueger, pt needs ct ivp Treatments: IV fluid/Zofran Re-evaluations: Reviewed results with patient. laboratory studies imaging are reassuring. Cystoscopy is still part of plan with Dr. Krueger. Patient to call Dr. Krueger for office appointment time scheduling for cystoscopy. Pain is controlled at time of discharge. Kidney stone on CT scan reviewed with him as well. Discussion: Appropriate for discharge home. Laboratory studies and imaging are reassuring. Patient has active urological services seeing him, Dr. Krueger. Return precautions reviewed with him. I did contact Dr. Evans le. Patient can be followed up in the clinic. White cell count not elevated. Renal function normal. Diagnosis: Hematuria Discharge Plan Departure Patient Disposition: Home Clinical Impression: Calculus, ureteral Instructions: DI for Kidney Stones Activity Restrictions/Additional Instructions: Please call Dr. Krueger tomorrow morning for office re-evaluation and scheduling for cystoscopy procedure. Return if worse if any questions or concerns. At this time no antibiotics are indicated. No new medications are required at this time. Kidney stone found today should be able to be passed without difficulty. Prescriptions: New hydrocodone-acetaminophen 5-325 mg tablet 1 tab PO Q6H PRN (Reason: pain) Qty: 12 0RF tamsulosin 0.4 mg capsule 0.4 mg PO DAILY Qty: 7 0RF ondansetron 4 mg tablet,disintegrating 4 mg PO Q8H PRN (Reason: nausea and vomiting) Qty: 10 0RF No Action levothyroxine [Synthroid] 50 MCG tablet 100 mcg OR QDAY Qty: 0 vitamin B complex [B Complex-Vitamin B12] 1 EACH tablet 1 tab PO QDAY Qty: 0 VITAMIN D (Vitamin D3) 1,000 units PO QDAY Qty: 0 zinc gluconate 50 MG tablet 50 mg PO Qty: 0 lisinopril 10 mg tablet 10 mg PO DAILY Qty: 30 0RF atorvastatin 20 mg tablet 20 mg PO DAILY Referrals: Elizabeth Uribe PA-C [Primary Care Provider] - Johnathan Krueger MD [Physician] - Stand Alone Forms: Patient Portal/API
--- NOTE | 2022-04-23 17:15 | DI.CT.S_ITS ---
PROCEDURE: CT ABDOMEN PELVIS WO/W CON INDICATIONS: Lower abdominal pain TECHNIQUE: After the administration of oral contrast, 5 mm thick sections acquired from the diaphragms to the iliac crests. After the administration of intravenous contrast, 5 mm thick sections acquired from the diaphragms to the symphysis. 5 mm thick coronal and sagittal reformats were acquired. For radiation dose reduction, the following was used: automated exposure control, adjustment of mA and/or kV according to patient size. COMPARISON: None. FINDINGS: Image quality: Excellent. Lung bases: Lung bases are clear. Heart size is normal. Solid organs: Liver: The liver has no mass or intrahepatic biliary ductal dilatation. The portal vein and hepatic veins are patent. Biliary: Gallstone in the gallbladder. No wall thickening or pericholecystic fluid. Pancreas: The pancreas has no mass or ductal dilatation. There is no surrounding inflammation. Spleen: Normal size. There are no masses. Adrenals: No hypertrophy or nodules. Kidneys: 4 millimeter stone in the right distal ureter with mild right hydroureteronephrosis. No solid mass. No cystic mass. Peritoneum and bowel: The distal esophagus and stomach are normal. The small bowel has a normal caliber and appearance. The terminal ileum is normal. The large bowel has diverticulosis with no evidence of diverticulitis. The appendix is normal. No free fluid or air. Nodes and vessels: No retroperitoneal or mesenteric adenopathy by size criteria. Aorta and inferior vena cava are normal in size. Miscellaneous: No abdominal wall mass or hernia. PELVIS: Genitourinary: The bladder has no wall thickening or mass. No bladder calcifications. Bones: Degenerative changes at L5-S1. No suspicious bony lesions. No vertebral body compression fractures. IMPRESSION: 4 millimeter right distal ureteral stone with mild right hydroureteronephrosis. Dictated by: Marty Crain M.D. on 04/23/2022 at 17:47 Approved by: Marty Crain M.D. on 04/23/2022 at 17:52
[2022-04-23] MEDS: SODIUM CHLORIDE 0.9% 500 ML 1000 ML IV (17:20)
[2022-04-23] MEDS: KETOROLAC 30 MG/ML VIAL 15 MG IV (19:14)
[2022-04-23] MEDS: TAMSULOSIN 0.4 MG CAPSULE PO (19:15)
== END 2022-04-23 19:27 | disposition home or self-care (01) ==
PROVIDERS: Emergency Provider Emergency Medicine; PCP Student in an Organized Health Care Education/Training Program
DX: N20.1 Calculus of ureter (principal); R31.9 Hematuria, unspecified
CPT/HCPCS: 36415; 74178; 80053; 81003; 81015; 83690; 85025; 87086; 93005; 96374; 99284; J1885; Q9967

== ENCOUNTER → 2022-05-08 09:14 | Outpatient (CLI) | payer OTHER, SELFPAY ==
[2022-05-08 10:43] LABS: Calcium 9.4 mg/dL (8.4-10.2); Uric Acid 5.6 mg/dL (3.5-8.5)
[2022-05-10 12:21] LABS: Calcium 9.4 mg/dL (8.7-10.2); Parathyroid Hormone, Intact 26 pg/mL (15-65)
== END ==
PROVIDERS: PCP Student in an Organized Health Care Education/Training Program; Referring Provider Urology; Visit Provider Urology
DX: R31.0 Gross hematuria (principal); Z87.440 Personal history of urinary (tract) infections; Z87.442 Personal history of urinary calculi
CPT/HCPCS: 36415; 51798; 52000; 81002; 82310; 83970; 84550; 99213

== ENCOUNTER 2022-08-11 05:46 | Emergency (ER) | payer OTHER, SELFPAY ==
[2022-08-11 05:52] VITALS: BP 174/96; PULSE 99; RESP 16; TEMP 36.8; O2SAT 99; BMI 24.9
[2022-08-11 06:15] LABS: Add Manual Diff / Slide Review NO; Basophils Absolute Auto 0 /uL (0-100); Basophils Percent Auto 0.2 % (0-2); Eosinophils Absolute Auto 100 /uL (0-450); Eosinophils Percent Auto 0.9 % (2-4); Hematocrit 42.7 % (41-53); Hemoglobin 14.4 g/dL (13.5-17.5); Lymphocytes Absolute Auto 900 /uL (1100-4500); Lymphocytes Percent Auto 7.5 % (25-40); Mean Corpuscular HGB Conc 33.7 % (30-36); Mean Corpuscular Hemoglobin 31.7 PG (26-34); Mean Corpuscular Volume 94.2 fL (80-100); Monocytes Absolute Auto 1000 /uL (0-900); Monocytes Percent Auto 8.4 % (3-14); Neutrophils Absolute Auto 9800 /uL (1500-7000); Platelet Count 174 X10^3/uL (150-400); Red Blood Cell Count 4.53 X10^6/uL (4.5-5.9); Red Cell Distribution Width 14.3 % (11.6-14.8); White Blood Cell Count 11.8 X10^3/uL (4.5-11.0)
[2022-08-11 06:28] LABS: Alanine Aminotransferase 40 IU/L (<50); Albumin 4.5 g/dL (3.5-5.0); Albumin Globulin Ratio 1.6 (1.0-2.8); Alkaline Phosphatase 126 U/L (38-126); Aspartate Aminotransferase 31 IU/L (17-59); BUN Creatinine Ratio 24.6 (6-22); Bilirubin Total 0.5 mg/dL (0.2-1.3); Blood Urea Nitrogen 17 mg/dL (9-20); Calcium 10.4 mg/dL (8.4-10.2); Carbon Dioxide 25 mmol/L (22-32); Chloride 105 mmol/L (98-107); Estimated Glomerular Filt Rate > 60 mL/min (>60); Globulin 2.9 g/dL (1.7-4.1); Glucose 132 mg/dL (70-100); HEMOLYSIS < 15 (0-50); Lipase 26 U/L (23-300); Potassium 4.7 mmol/L (3.4-5.1); Sodium 138 mmol/L (137-145); Total Protein 7.4 g/dL (6.3-8.2)
[2022-08-11 06:49] LABS: Creatine Kinase 147 U/L (55-170)
--- NOTE | 2022-08-11 06:49 | DI.US.S_ITS ---
PROCEDURE: US ABDOMEN LIMITED INDICATIONS: RIGHT UPPER QUADRANT TECHNIQUE: Real-time focused scanning was performed of the abdomen, with image documentation. COMPARISON: None. FINDINGS: Liver is within normal limits. Gallbladder wall is thickened at 4 mm. There is complex pericholecystic fluid measuring 30 mm x 22 mm x 26 mm. Multiple calculi within the gallbladder lumen. There is a calculus within the gallbladder neck. IMPRESSION: 1. Cholelithiasis as above. 2. Gallbladder wall thickening, consistent with cholecystitis in the appropriate clinical setting. 3. Complex pericholecystic fluid collection. Dictated by: Melina Bowie M.D. on 08/11/2022 at 7:49 Approved by: Melina Bowie M.D. on 08/11/2022 at 7:51
[2022-08-11 07:02] LABS: Troponin I 0.013 ng/mL (0.01-0.034)
[2022-08-11] MEDS: KETOROLAC 30 MG/ML VIAL IV (07:08)
[2022-08-11 07:10] VITALS: BP 194/106; PULSE 85; RESP 20; O2SAT 98
--- NOTE | 2022-08-11 07:10 | ED_ITS ---
HPI - General Adult General Chief complaint: Abdominal Pain Stated complaint: abd pain x1 day Time Seen by Provider: 08/11/22 06:39 Source: patient Mode of arrival: Ambulatory History of Present Illness HPI narrative: Patient is a 56-year-old male who had approximately 0600 hours last evening had a fairly sudden onset of epigastric abdominal discomfort. He is had some nausea and dry heaving but no vomiting. This has not changed his pain at all. No constipation or diarrhea. No fevers. It has been consistent since last evening. He is no chest pain or shortness of breath. Has never had discomfort like this in the past. No prior abdominal surgeries. Has not tried anything for the symptoms prior to arrival. Pain is not radiating to his back. No urinary symptoms. Related Data Home Medications Medication Instructions Recorded Confirmed levothyroxine 50 mcg tablet 100 mcg OR QDAY ##0 06/17/16 06/06/22 (Synthroid) VITAMIN D (Vitamin D3) 1,000 units PO QDAY ##0 06/26/16 06/06/22 vitamin B complex (B 1 tab PO QDAY ##0 06/26/16 06/06/22 Complex-Vitamin B12 tablet) zinc gluconate 50 mg tablet 50 mg PO ##0 06/26/16 06/06/22 atorvastatin 20 mg tablet 20 mg PO DAILY 04/04/22 06/06/22 lisinopril 10 mg tablet 30 mg PO DAILY 06/06/22 06/06/22 Previous Rx's Medication Instructions Recorded hydrocodone 5 mg-acetaminophen 325 1 tab PO Q6H PRN pain #12 tabs 04/23/22 mg tablet ondansetron 4 mg disintegrating 4 mg PO Q8H PRN nausea and 04/23/22 tablet vomiting #10 tabs tamsulosin 0.4 mg capsule 0.4 mg PO DAILY #7 caps 04/23/22 hydrocodone 5 mg-acetaminophen 325 1 tab PO Q8H PRN pain #10 tabs 08/11/22 mg tablet ondansetron 4 mg disintegrating 4 mg PO Q6H PRN nausea and 08/11/22 tablet vomiting #10 tabs Allergies Allergy/AdvReac Type Severity Reaction Status Date / Time No Known Drug Allergies Allergy Verified 06/06/22 08:07 Review of Systems Review of Systems ROS Unobtainable: All systems reviewed & are unremarkable except as noted in HPI and below Patient History Medical History Cancer Gross hematuria History of kidney stones History of urinary tract infection Hyperlipemia Hypothyroid Kidney stones Tobacco use Family History Father Hearing impairment Social History marital status: unmarried,single number of children: 0 Smoking Status: Never smoker Smoking Status: Never smoker tobacco type: smokeless tobacco alcohol intake frequency: 0-2 drinks per day Alcohol type: beer Substance Use Type: does not use Exam Initial Vital Signs Initial Vital Signs: Vital Signs Temperature 98.2 F 08/11/22 05:52 Pulse Rate 99 H 08/11/22 05:52 Respiratory Rate 16 08/11/22 05:52 Blood Pressure 174/96 H 08/11/22 05:52 Pulse Oximetry 99 08/11/22 05:52 Oxygen Delivery Method Room Air 08/11/22 05:52 Const General: cooperative, comfortable and No ill appearing HENMT Head: normal to inspection and normocephalic Resp Effort & Inspection: normal respiratory effort Auscultation: clear to auscultation bilaterally Cardio Rate: regular rate GI Inspection: normal to inspection and non-distended Palpation: soft, No firm, No guarding and No tender (Minimally tender) Skin General: no rashes or lesions noted Neuro General: patient alert, patient awake, patient oriented x3 and moves all extremities Cognition: normal cognition Extrem General: No edema Course Orders Ordered: ED Orders 08/11/22 05:55 EKG-12 Lead Stat 08/11/22 06:06 Complete Blood Count AUTO DIFF Stat Comprehensive Metabolic Panel Stat Lipase Stat Troponin & CK Cardiac Panel Stat 08/11/22 06:49 US abdomen limited Stat 08/11/22 07:51 Urinalysis and Microscopic Stat Ondansetron HCl (Ondansetron 4 Mg Odt) 4 mg PO NOW PRN PRN Reason: Nausea And Vomiting Ondansetron HCl (Ondansetron 4 Mg/2 Ml Inj) 4 mg IV NOW PRN PRN Reason: Nausea And Vomiting Discontinued Medications Ketorolac Tromethamine (Ketorolac 30 Mg/Ml Vial) 30 mg IV NOW ONE Stop: 08/11/22 07:03 Last Admin: 08/11/22 07:08 Dose: 30 mg Vital Signs Vital signs: Vital Signs - 8 hr 08/11/22 05:52 08/11/22 07:10 08/11/22 07:30 Temperature 98.2 F Pulse Rate 99 H 85 84 Respiratory Rate 16 20 18 Blood Pressure 174/96 H 194/106 H 178/84 H Pulse Oximetry 99 98 98 Oxygen Delivery Method Room Air Room Air 08/11/22 08:00 Temperature Pulse Rate 91 H Respiratory Rate 20 Blood Pressure 167/84 H Pulse Oximetry 98 Oxygen Delivery Method Medical Decision Making Lab Data Lab results reviewed: Yes I reviewed the patient's lab results. 08/11/22 06:06 08/11/22 06:06 Labs: Lab Results 08/11/22 08/11/22 08/11/22 Range/Units 06:06 06:06 06:06 WBC 11.8 H (4.5-11.0) X10^3/uL RBC 4.53 (4.5-5.9) X10^6/uL Hgb 14.4 (13.5-17.5) g/dL Hct 42.7 (41-53) % MCV 94.2 (80-100) fL MCH 31.7 (26-34) PG MCHC 33.7 (30-36) % RDW 14.3 (11.6-14.8) % Plt Count 174 (150-400) X10^3/uL Neut % (Auto) 83.0 H (50-75) % Lymph % (Auto) 7.5 L (25-40) % [place] % (Auto) 8.4 (3-14) % Eos % (Auto) 0.9 L (2-4) % Baso % (Auto) 0.2 (0-2) % Neut # (Auto) 9800 H (7559-5151) /uL Lymph # (Auto) 900 L (2833-7475) /uL [place] # (Auto) 1000 H (0-900) /uL Eos # (Auto) 100 (0-450) /uL Baso # (Auto) 0 (0-100) /uL Sodium 138 (137-145) mmol/L Potassium 4.7 (3.4-5.1) mmol/L Chloride 105 (98-107) mmol/L Carbon Dioxide 25 (22-32) mmol/L BUN 17 (9-20) mg/dL Creatinine 0.69 (0.66-1.25) mg/dL Estimated GFR > 60 (>60) mL/min BUN/Creatinine Ratio 24.6 H (6-22) Glucose 132 H (70-100) mg/dL Calcium 10.4 H (8.4-10.2) mg/dL Total Bilirubin 0.5 (0.2-1.3) mg/dL AST 31 (17-59) IU/L ALT 40 (<50) IU/L Alkaline Phosphatase 126 (38-126) U/L Total Creatine Kinase 147 (55-170) U/L CK-MB (CK-2) TNP CK-MB (CK-2) Rel Index TNP Troponin I 0.013 (0.01-0.034) ng/mL Total Protein 7.4 (6.3-8.2) g/dL Albumin 4.5 (3.5-5.0) g/dL Globulin 2.9 (1.7-4.1) g/dL Albumin/Globulin Ratio 1.6 (1.0-2.8) Lipase 26 (23-300) U/L Urine Color Urine Appearance Urine pH (4.5-8.0) Ur Specific [place] (1.000-1.035) Urine Protein (Negative) Urine Glucose (UA) (Negative) g/dL Urine Ketones (NEGATIVE) Urine Occult Blood (Negative) Urine Nitrate (Negative) Urine Bilirubin (NEGATIVE) Urine Urobilinogen (0.2) E.U./dL Ur Leukocyte Esterase (NEGATIVE) Urine RBC (0-5/HPF) Urine WBC (0-5/HPF) Ur Squamous Epith Cells (0-5/HPF) Urine Bacteria (None) Ur Culture Indicated? 08/11/ Range/Units 07:51 WBC (4.5-11.0) X10^3/uL RBC (4.5-5.9) X10^6/uL Hgb (13.5-17.5) g/dL Hct (41-53) % MCV (80-100) fL MCH (26-34) PG MCHC (30-36) % RDW (11.6-14.8) % Plt Count (150-400) X10^3/uL Neut % (Auto) (50-75) % Lymph % (Auto) (25-40) % [place] % (Auto) (3-14) % Eos % (Auto) (2-4) % Baso % (Auto) (0-2) % Neut # (Auto) (3523-5353) /uL Lymph # (Auto) (7778-9097) /uL [place] # (Auto) (0-900) /uL Eos # (Auto) (0-450) /uL Baso # (Auto) (0-100) /uL Sodium (137-145) mmol/L Potassium (3.4-5.1) mmol/L Chloride (98-107) mmol/L Carbon Dioxide (22-32) mmol/L BUN (9-20) mg/dL Creatinine (0.66-1.25) mg/dL Estimated GFR (>60) mL/min BUN/Creatinine Ratio (6-22) Glucose (70-100) mg/dL Calcium (8.4-10.2) mg/dL Total Bilirubin (0.2-1.3) mg/dL AST (17-59) IU/L ALT (<50) IU/L Alkaline Phosphatase (38-126) U/L Total Creatine Kinase (55-170) U/L CK-MB (CK-2) CK-MB (CK-2) Rel Index Troponin I (0.01-0.034) ng/mL Total Protein (6.3-8.2) g/dL Albumin (3.5-5.0) g/dL Globulin (1.7-4.1) g/dL Albumin/Globulin Ratio (1.0-2.8) Lipase (23-300) U/L Urine Color Yellow Urine Appearance Clear Urine pH 6.5 (4.5-8.0) Ur Specific [place] 1.020 (1.000-1.035) Urine Protein Negative (Negative) Urine Glucose (UA) Negative (Negative) g/dL Urine Ketones Negative (NEGATIVE) Urine Occult Blood Trace-intact (Negative) Urine Nitrate Negative (Negative) Urine Bilirubin Negative (NEGATIVE) Urine Urobilinogen 0.2 (0.2) E.U./dL Ur Leukocyte Esterase Negative (NEGATIVE) Urine RBC 0-1/hpf (0-5/HPF) Urine WBC None seen (0-5/HPF) Ur Squamous Epith Cells None seen (0-5/HPF) Urine Bacteria None seen (None) Ur Culture Indicated? Cult not indicated Urine Dip Bedside Urine Glucose Negative Bedside Urine Bilirubin - Negative Bedside Urine Ketone - Negative Urine Specific [place] 1.015 Bedside Urine Occult Blood +/- Bedside Urine pH 7.0 Bedside Urine Protein - Negative Bedside Urine Urobilinogen - Negative Bedside Urine Nitrite - Negative Bedside Urine Leukocytes - Negative Esterase Point of care testing: Urine Dip Bedside Urine Glucose Negative Bedside Urine Bilirubin - Negative Bedside Urine Ketone - Negative Urine Specific [place] 1.015 Bedside Urine Occult Blood +/- Bedside Urine pH 7.0 Bedside Urine Protein - Negative Bedside Urine Urobilinogen - Negative Bedside Urine Nitrite - Negative Bedside Urine Leukocytes - Negative Esterase Imaging Data US - abdomen: Radiologist's Impression: PROCEDURE: US ABDOMEN LIMITED ? INDICATIONS:? RIGHT UPPER QUADRANT ? TECHNIQUE:? Real-time focused scanning was performed of the abdomen, with image documen tation.? ? COMPARISON:? None. ? FINDINGS:? Liver is within normal limits.? Gallbladder wall is thickened at 4 mm. There is complex pericholecystic fluid measuring 30 mm x 22 mm x 26 mm.? Multiple calc dayron within the gallbladder lumen.? There is a calculus within the gallbladder neck. ? IMPRESSION:? 1. Cholelithiasis as above. 2. Gallbladder wall thickening, consistent with cholecystitis in the appropriate clinical setting. 3. Complex pericholecystic fluid collection.? ECG Data Attestation: I personally reviewed and interpreted this ECG as follows: Interpretation: Sinus rhythm Ventricular rate is 76 Left axis deviation LVH No ST T wave changes MDM Narrative Medical decision making narrative: After Toradol patient states that his symptoms have greatly improved if not resolved. He does not have a white count. Nontoxic. Afebrile. Not tachycardic. LFTs and lipase are unremarkable. I have low suspicion for ACS. Given his ultrasound findings I suspect that his abdominal discomfort is related to his cholelithiasis. There is questionable acute cholecystitis on the ultrasound however he has no right upper quadrant pain. Negative Lee's sign. Given that his symptoms have resolved will send home with symptom treatment and information for follow-up with general surgery. He was given return precautions. He expressed understanding and agreement with plan. Discharge Plan Departure Patient Disposition: Home Clinical Impression: Cholelithiasis, Abdominal pain, Biliary colic Instructions: Gallstones Activity Restrictions/Additional Instructions: I do recommend that you eat a bland diet and stay away from foods that contain high amounts of fats/grease/oil was as these types of foods can cause issues with your gallbladder. I also recommend that you contact the general surgeons the number provided below for a follow-up. Return to the emergency department for new or worsening symptoms. Prescriptions: New ondansetron 4 mg tablet,disintegrating 4 mg PO Q6H PRN (Reason: nausea and vomiting) Qty: 10 0RF hydrocodone-acetaminophen 5-325 mg tablet 1 tab PO Q8H PRN (Reason: pain) Qty: 10 0RF No Action levothyroxine [Synthroid] 50 MCG tablet 100 mcg OR QDAY Qty: 0 vitamin B complex [B Complex-Vitamin B12] 1 EACH tablet 1 tab PO QDAY Qty: 0 VITAMIN D (Vitamin D3) 1,000 units PO QDAY Qty: 0 zinc gluconate 50 MG tablet 50 mg PO Qty: 0 hydrocodone-acetaminophen 5-325 mg tablet 1 tab PO Q6H PRN (Reason: pain) Qty: 12 0RF tamsulosin 0.4 mg capsule 0.4 mg PO DAILY Qty: 7 0RF ondansetron 4 mg tablet,disintegrating 4 mg PO Q8H PRN (Reason: nausea and vomiting) Qty: 10 0RF atorvastatin 20 mg tablet 20 mg PO DAILY lisinopril 10 mg tablet 30 mg PO DAILY Referrals: Edmundo Gardner MD [Physician] - Elizabeth Uribe PA-C [Primary Care Provider] - Stand Alone Forms: Patient Portal/API
[2022-08-11 07:30] VITALS: BP 178/84; PULSE 84; RESP 18; O2SAT 98
[2022-08-11 08:00] VITALS: BP 167/84; PULSE 91; RESP 20; O2SAT 98
[2022-08-11 08:03] LABS: Appearance Urine UA CLEAR; Bilirubin Urine UA NEGATIVE (NEGATIVE); Color Urine UA YELLOW; Glucose Urine UA NEGATIVE (Negative); Ketones Urine UA NEGATIVE (NEGATIVE); Leukocyte Esterase Urine UA NEGATIVE (NEGATIVE); Nitrite Urine UA NEGATIVE (Negative); Occult Blood Urine UA TRACE-INTACT (Negative); Protein Urine UA NEGATIVE (Negative); Urobilinogen Urine UA 0.2 E.U./dL (0.2); pH Urine UA 6.5 (4.5-8.0)
[2022-08-11 08:09] LABS: Bacteria Urine None Seen; Culture Indicated Urine Cult Not Indicated; RBC Urine 0-1/HPF (0-5/HPF); Squamous Epithelial Cell Urine None Seen (0-5/HPF); WBC Urine None Seen (0-5/HPF)
== END 2022-08-11 08:27 | disposition home or self-care (01) ==
PROVIDERS: Emergency Medicine; Emergency Provider Emergency Medicine; PCP Student in an Organized Health Care Education/Training Program
DX: K80.20 Calculus of gallbladder without cholecystitis without obstruction (principal); K80.50 Calculus of bile duct without cholangitis or cholecystitis without obstruction; R11.0 Nausea
CPT/HCPCS: 36415; 76705; 80053; 81001; 81003; 82550; 83690; 84484; 85025; 93005; 93010; 96374; 99284; J1885

== ENCOUNTER → 2023-02-24 08:19 | Outpatient (CLI) | payer OTHER, SELFPAY ==
--- NOTE | 2023-02-24 08:21 | DI.RAD.S_ITS ---
PROCEDURE: XR KUB INDICATIONS: Kidney stone TECHNIQUE: One view of the abdomen acquired. COMPARISON: CT abdomen pelvis 04/23/2022. FINDINGS: Surgical changes and devices: None Bowel: Bowel gas pattern is normal. Soft tissues: 5 millimeter round calcification overlying the right iliac wing may represent distal right ureter stone versus appendicolith as seen on prior CT 04/23/2022. Additional 3 millimeter calcification overlying the right lateral pelvis soft tissues may represent right ureter stone versus pelvic phlebolith. No suspicious abdominal calcifications. Visualized solid organ contours appear normal in size. Bones: No suspicious bony lesions. IMPRESSION: 5 millimeter and 3 millimeter calcifications are seen along the right ureter course, may represent ureteral stones versus appendicolith/pelvic phleboliths. No calcifications overlying the bilateral kidneys to suggest nephrolithiasis. Approved by: Agata Duarte M.D. on 02/24/2023 at 8:59
== END ==
LOC: RAD 08:20
PROVIDERS: PCP Student in an Organized Health Care Education/Training Program; Referring Provider Urology; Visit Provider Urology
DX: Z87.442 Personal history of urinary calculi (principal); N28.89 Other specified disorders of kidney and ureter
CPT/HCPCS: 74018

== ENCOUNTER → 2023-09-15 08:05 | Outpatient (CLI) | payer OTHER, SELFPAY ==
--- NOTE | 2023-09-15 08:06 | DI.RAD.S_ITS ---
PROCEDURE: XR KUB INDICATIONS: Kidney stones TECHNIQUE: One view of the abdomen acquired. COMPARISON: CT, CT ABDOMEN PELVIS WO/W CON, 04/23/2022, 17:39. [facility], CR, XR KUB, 02/24/2023, 8:20. FINDINGS: Surgical changes and devices: None. Bowel: Bowel gas pattern is normal. Soft tissues: 4 mm rounded calcifications overlying the right superior iliac crest, not visualized on prior exam. Previous calcification overlying the inferior aspect of the superior iliac crest is no longer visualized. No distinct calcifications overlying the renal shadows. Visualized solid organ contours appear normal in size. Bones: No suspicious bony lesions. IMPRESSION: 4 mm calcification overlying the right superior iliac crest possibly related to ureteral calculus. Dictated by: Josy Gomes M.D. on 09/15/2023 at 13:48 Approved by: Josy Gomes M.D. on 09/15/2023 at 13:52
== END ==
PROVIDERS: PCP Student in an Organized Health Care Education/Training Program; Referring Provider Urology; Visit Provider Urology
DX: R31.0 Gross hematuria (principal); Z87.442 Personal history of urinary calculi
CPT/HCPCS: 74018

== ENCOUNTER 2023-10-16 09:02 | Emergency (ER) | payer OTHER, SELFPAY ==
[2023-10-16 09:03] VITALS: BP 197/99; PULSE 92; RESP 14; TEMP 36.7; O2SAT 100; BMI 24.4
[2023-10-16 09:07] VITALS: O2SAT 97
[2023-10-16 09:08] VITALS: BP 197/99; O2SAT 100
--- NOTE | 2023-10-16 09:39 | ED.BACK ---
HPI - Back Pain/Injury General Chief Complaint: Back Pain/Injury Stated Complaint: tender back pain r side Time Seen by Provider: 10/16/23 09:08 Source: patient History of Present Illness HPI Narrative: Patient 57-year-old male history of hyperlipidemia hypothyroid presenting today with 1 week of right-sided pain. He reports pretty constantly there it has not really in his flank seems to be more on his side. He has no nausea or vomiting. He does have 1 episode of loose stool daily and has for 1 month. But reports no significant weight loss. He has had no fever or chills. He has not taken anything for pain does not currently want anything for pain. He previously has had kidney stones and gallstones. He reports that this is not feel like a kidney stone. He was seen by his urologist about a month ago and reports that he was checked out and says that there were no further stones. Related Data Home Medications Medication Instructions Recorded Confirmed levothyroxine 50 mcg tablet 100 mcg OR QDAY ##0 06/17/16 09/16/23 (Synthroid) VITAMIN D (Vitamin D3) 1,000 units PO QDAY ##0 06/26/16 09/16/23 atorvastatin 20 mg tablet 20 mg PO DAILY 04/04/22 09/16/23 lisinopril 10 mg tablet 30 mg PO DAILY 06/06/22 09/16/23 magnesium 200 mg tablet 200 mg PO DAILY 08/22/22 09/16/23 Allergies Allergy/AdvReac Type Severity Reaction Status Date / Time No Known Drug Allergies Allergy Verified 10/16/23 09:09 Patient History Medical History (Updated 10/16/23 @ 11:57 by Anne Campbell DO) Asymptomatic microscopic hematuria Lower urinary tract symptoms History of kidney stones History of urinary tract infection Tobacco use Gross hematuria Kidney stones Hyperlipemia Cancer Hypothyroid Family History Father Hearing impairment Social History marital status: unmarried,single number of children: 0 Smoking Status: Never smoker Smoking Status: Never smoker tobacco type: smokeless tobacco alcohol intake frequency: 3 or more drinks per day Alcohol type: beer Substance Use Type: does not use Exam Initial Vital Signs Initial Vital Signs: Vital Signs Temperature 98.0 F 10/16/23 09:03 Pulse Rate 92 H 10/16/23 09:03 Respiratory Rate 14 10/16/23 09:03 Blood Pressure 197/99 H 10/16/23 09:03 Pulse Oximetry 100 10/16/23 09:03 Oxygen Delivery Method Room Air 10/16/23 09:03 GENERAL: Alert pleasant nonacute 57-year-old male and in no acute distress. HEENT: Head atraumatic,EOMI, pupils reactive, face symmetric, moist mucous membranes CARDIOVASCULAR: Regular rate and rhythm without murmurs, rubs or gallops. RESPIRATORY: Breath sounds equal bilaterally, no wheezes rales or rhonchi. ABDOMEN: Soft, mild right-sided pain negative Lee sign no epigastric pain abdomen is soft nondistended nontender : No CVA tenderness EXTREMITIES: Normal range of motion, no clubbing or edema. Neurovascularly intact NEUROLOGICAL: Alert and oriented x4.Normal gait and speech. SKIN: Warm, dry, no laceration, no petechiae, no rashes or lesions. Course Orders Ordered: ED Orders 10/16/23 09:45 US abdomen limited Stat 10/16/23 10:36 Urine Microscopic Stat 10/16/23 11:03 Complete Blood Count AUTO DIFF Stat Comprehensive Metabolic Panel Stat Lipase Stat Vital Signs Vital signs: Vital Signs - 8 hr 10/16/23 09:03 10/16/23 09:07 10/16/23 09:08 Temperature 98.0 F Pulse Rate 92 H Respiratory Rate 14 Blood Pressure 197/99 H Pulse Oximetry 100 97 100 Oxygen Delivery Method Room Air 10/16/23 09:08 10/16/23 11:44 10/16/23 11:44 Temperature Pulse Rate 90 Respiratory Rate Blood Pressure 197/99 H 207/100 H Pulse Oximetry 99 Oxygen Delivery Method Room Air MDM - Back Pain/Injury Lab Data 10/16/23 11:03 10/16/23 11:03 Labs: Lab Results 10/16/23 10/16/23 Range/Units 10:36 11:03 WBC 10.1 (4.5-11.0) X10^3/uL RBC 4.58 (4.5-5.9) X10^6/uL Hgb 14.9 (13.5-17.5) g/dL Hct 44.0 (41-53) % MCV 96.0 (80-100) fL MCH 32.5 (26-34) PG MCHC 33.8 (30-36) % RDW 12.9 (11.6-14.8) % Plt Count 173 (150-400) X10^3/uL Neut % (Auto) 83.0 H (50-75) % Lymph % (Auto) 6.1 L (25-40) % [place] % (Auto) 10.5 (3-14) % Eos % (Auto) 0.1 L (2-4) % Baso % (Auto) 0.3 (0-2) % Neut # (Auto) 8400 H (8982-5999) /uL Lymph # (Auto) 600 L (4378-6834) /uL [place] # (Auto) 1100 H (0-900) /uL Eos # (Auto) 0 (0-450) /uL Baso # (Auto) 0 (0-100) /uL Sodium 137 (137-145) mmol/L Potassium 5.0 (3.4-5.1) mmol/L Chloride 104 (98-107) mmol/L Carbon Dioxide 23 (22-32) mmol/L BUN 12 (9-20) mg/dL Creatinine 0.61 L (0.66-1.25) mg/dL Estimated GFR > 60 (>60) mL/min BUN/Creatinine Ratio 19.7 (6-22) Glucose 130 H (70-100) mg/dL Calcium 9.7 (8.4-10.2) mg/dL Total Bilirubin 0.8 (0.2-1.3) mg/dL AST 63 H (17-59) IU/L ALT 66 H (<50) IU/L Alkaline Phosphatase 110 (38-126) U/L Total Protein 7.6 (6.3-8.2) g/dL Albumin 4.6 (3.5-5.0) g/dL Globulin 3.0 (1.7-4.1) g/dL Albumin/Globulin Ratio 1.5 (1.0-2.8) Lipase 25 (23-300) U/L Urine RBC 0-1/hpf (0-5/HPF) Urine WBC None seen (0-5/HPF) Ur Squamous Epith Cells None seen (0-5/HPF) Urine Bacteria None seen (None) Ur Culture Indicated? Cult not indicated Vol Urine Centrifuged 10ml (spun) Urine Dip Bedside Urine Glucose Negative Bedside Urine Bilirubin - Negative Bedside Urine Ketone - Negative Urine Specific [place] 1.010 Bedside Urine Occult Blood + Bedside Urine pH 7.0 Bedside Urine Protein - Negative Bedside Urine Urobilinogen - Negative Bedside Urine Nitrite - Negative Bedside Urine Leukocytes - Negative Esterase Imaging Data US - abdomen: Radiologist's Impression: PROCEDURE: US ABDOMEN LIMITED INDICATIONS: RIGHT UPPER QUADRANT PAIN TECHNIQUE: Real-time scanning was performed of the abdominal and retroperitoneal organs, with image documentation. COMPARISON: [facility], CT, CT ABDOMEN PELVIS WO/W CON, 04/23/2022, 17:39. FINDINGS: Liver: Liver is normal in size and homogeneous in echotexture. Gallbladder: 1.8 centimeter in maximum diameter mobile gallstone. No wall thickening. No pericholecystic edema. Negative sonographic Lee's sign. Biliary ducts: Intrahepatic bile ducts are non-dilated. Extrahepatic bile duct caliber measures 5.7 mm. Normal is 6-7 mm or less in diameter, or 10 mm or less post-cholecystectomy. Pancreas: Not visualized due to bowel gas and cannot be evaluated. Miscellaneous: No free abdominal fluid. [id number] right hydronephrosis. Mild left hydronephrosis. Urinary bladder wall is thickened. IMPRESSION: Cholelithiasis without sonographic evidence of cholecystitis. If there is clinical concern for cholecystitis, a nuclear medicine HIDA scan should be considered for further evaluation. [id number] right-sided hydronephrosis. Mild left-sided hydronephrosis. Urinary bladder wall thickening which could be due to cystitis or infiltrating neoplasm. Recommend correlation with urinalysis data. Dictated by: Cornelia Woods MD, PhD on 10/16/2023 at 10:34 Approved by: Cornelia Woods MD, PhD on 10/16/2023 at 10:37 [facility] Narrative Medical decision making narrative: Patient 57-year-old male history of cholelithiasis and nephrolithiasis presenting with right upper quadrant pain. He does not appear in acute distress does not want anything for pain. However he has had ongoing pain for the last 1 week. Blood work has been reviewed he has no significant leukocytosis bilirubin is 0.8 , AST 63, previously 31, ALT 66 previously 40, lipase 25 creatinine 0.6 Urinalysis does not show evidence of hematuria or UTI Ultrasound does show large mobile gallstone without evidence of acute cholecystitis there is also [id number] right hydronephrosis and mild left hydronephrosis Patient just met with his urologist. He has no hematuria acting like a kidney stone pain is more anteriorly. I suspect pain discomfort is from his mobile gallstone. He has no evidence of acute cholecystitis normal bilirubin no need for MRCP at this time. Discussed with patient he needs evaluation with General surgery and probable elective cholecystectomy. Discussion with him about strict return precautions Discharge Plan Departure Patient Disposition: Home Clinical Impression: Cholelithiasis Instructions: Gallstones Activity Restrictions/Additional Instructions: *You have been diagnosed with gallstone *What to do: At this time I do recommend you call general surgery to have your gallbladder electively removed. This is probably the cause of your discomfort today *Continue to take medications as directed Motrin 600 mg every 6 hours if needed for [id number] *Follow up with your primary care provider in 2-3 days or call [phone] [facility] today or tomorrow to schedule follow-up appointment *Return to ER if you should have increasing pain persistent vomiting fever or any new, worsening or concerning symptoms Prescriptions: No Action levothyroxine [Synthroid] 50 MCG tablet 100 mcg OR QDAY Qty: 0 VITAMIN D (Vitamin D3) 1,000 units PO QDAY Qty: 0 atorvastatin 20 mg tablet 20 mg PO DAILY magnesium 200 mg tablet 200 mg PO DAILY lisinopril 10 mg tablet 30 mg PO DAILY Referrals: [facility] [Provider Group] Elizabeth Uribe PA-C [Primary Care Provider] - Stand Alone Forms: Patient Portal/API
--- NOTE | 2023-10-16 09:45 | DI.US.S_ITS ---
PROCEDURE: US ABDOMEN LIMITED INDICATIONS: RIGHT UPPER QUADRANT PAIN TECHNIQUE: Real-time scanning was performed of the abdominal and retroperitoneal organs, with image documentation. COMPARISON: [facility], CT, CT ABDOMEN PELVIS WO/W CON, 04/23/2022, 17:39. FINDINGS: Liver: Liver is normal in size and homogeneous in echotexture. Gallbladder: 1.8 centimeter in maximum diameter mobile gallstone. No wall thickening. No pericholecystic edema. Negative sonographic Lee's sign. Biliary ducts: Intrahepatic bile ducts are non-dilated. Extrahepatic bile duct caliber measures 5.7 mm. Normal is 6-7 mm or less in diameter, or 10 mm or less post-cholecystectomy. Pancreas: Not visualized due to bowel gas and cannot be evaluated. Miscellaneous: No free abdominal fluid. [id number] right hydronephrosis. Mild left hydronephrosis. Urinary bladder wall is thickened. IMPRESSION: Cholelithiasis without sonographic evidence of cholecystitis. If there is clinical concern for cholecystitis, a nuclear medicine HIDA scan should be considered for further evaluation. [id number] right-sided hydronephrosis. Mild left-sided hydronephrosis. Urinary bladder wall thickening which could be due to cystitis or infiltrating neoplasm. Recommend correlation with urinalysis data. Dictated by: Cornelia Woods MD, PhD on 10/16/2023 at 10:34 Approved by: Cornelia Woods MD, PhD on 10/16/2023 at 10:37
[2023-10-16 10:46] LABS: Urine Volume 10mL (spun)
[2023-10-16 10:49] LABS: Bacteria Urine None Seen; RBC Urine 0-1/HPF (0-5/HPF); Squamous Epithelial Cell Urine None Seen (0-5/HPF); WBC Urine None Seen (0-5/HPF)
[2023-10-16 10:50] LABS: Culture Indicated Urine Cult Not Indicated
[2023-10-16 11:15] LABS: Add Manual Diff / Slide Review NO; Basophils Absolute Auto 0 /uL (0-100); Basophils Percent Auto 0.3 % (0-2); Eosinophils Absolute Auto 0 /uL (0-450); Eosinophils Percent Auto 0.1 % (2-4); Hemoglobin 14.9 g/dL (13.5-17.5); Lymphocytes Absolute Auto 600 /uL (1100-4500); Lymphocytes Percent Auto 6.1 % (25-40); Mean Corpuscular HGB Conc 33.8 % (30-36); Mean Corpuscular Hemoglobin 32.5 PG (26-34); Monocytes Absolute Auto 1100 /uL (0-900); Monocytes Percent Auto 10.5 % (3-14); Neutrophils Absolute Auto 8400 /uL (1500-7000); Platelet Count 173 X10^3/uL (150-400); Red Blood Cell Count 4.58 X10^6/uL (4.5-5.9); Red Cell Distribution Width 12.9 % (11.6-14.8); White Blood Cell Count 10.1 X10^3/uL (4.5-11.0)
[2023-10-16 11:19] LABS: Alanine Aminotransferase 66 IU/L (<50); Albumin 4.6 g/dL (3.5-5.0); Albumin Globulin Ratio 1.5 (1.0-2.8); Alkaline Phosphatase 110 U/L (38-126); Aspartate Aminotransferase 63 IU/L (17-59); BUN Creatinine Ratio 19.7 (6-22); Bilirubin Total 0.8 mg/dL (0.2-1.3); Blood Urea Nitrogen 12 mg/dL (9-20); Calcium 9.7 mg/dL (8.4-10.2); Carbon Dioxide 23 mmol/L (22-32); Chloride 104 mmol/L (98-107); Estimated Glomerular Filt Rate > 60 mL/min (>60); Glucose 130 mg/dL (70-100); HEMOLYSIS < 15 (0-50); Lipase 25 U/L (23-300); Sodium 137 mmol/L (137-145); Total Protein 7.6 g/dL (6.3-8.2)
[2023-10-16 11:44] VITALS: BP 207/100; PULSE 90; O2SAT 99
== END 2023-10-16 12:00 | disposition home or self-care (01) ==
PROVIDERS: Emergency Provider Emergency Medicine; PCP Student in an Organized Health Care Education/Training Program
DX: K80.20 Calculus of gallbladder without cholecystitis without obstruction (principal); R10.11 Right upper quadrant pain
CPT/HCPCS: 36415; 76705; 80053; 81003; 81015; 83690; 85025; 99283; 99284

== ENCOUNTER 2023-11-11 12:27 | Day surgery (SDC) | payer OTHER, SELFPAY ==
[2023-11-06 14:45] VITALS: BMI 23.7
--- NOTE | 2023-11-10 18:30 | PM.PREOP ---
Pre-operative Note Interval Note History & Physical reviewed/Exam performed by Physician: Yes Changes to H&P: No
[2023-11-11] VITALS (7 sets, daily range): BP systolic 118–170; BP diastolic 48–91; PULSE 50–98; RESP 14–16; TEMP 36.1–36.6; O2SAT 99–100; BMI 23.7
--- NOTE | 2023-11-11 | PATH_ITS ---
[facility] Accession Number: [id number] No. of containers..01 Tissue . 01 Material submitted: . gallbladder - GALL BLADDER . 01 Diagnosis: A. GALLBLADDER, CHOLECYSTECTOMY: Mild chronic cholecystitis with cholelithiasis. Negative for dysplasia or malignancy. [facility] 11/13/2023 0914 Local . 01 Electronically signed: . Debbie Tinajero MD, Pathologist NPI- [id number] . 01 Gross description: . Received in formalin with two patient identifiers and gallbladder, is an intact gallbladder (7.3 x 2.4 x 2.0 cm) with green to hemorrhagic, roughened serosa. The cystic duct margin is inked blue and no pericystic lymph node is identified. The lumen contains green mucoid bile and a green roughened calculous, 2.3 cm in greatest dimension, grossly obstructing the lumen. The mucosa is green to tomas and velvety with no yellow discoloration, polyps, or lesions identified. The lim average 0.2 cm thick, and event sales representative sections to include the cystic duct margin and full thickness sections are submitted in A1. ([id number]) /MRV 11/12/2023 1904 Local . 01 Pathologist provided ICD-10: K80.50 . 01 CPT . 687190 Specimen Comment: A courtesy copy of this report has been sent to [phone] Performed at: [address] [id number] MD Jerald Garza MD Phone: [phone]
[2023-11-11] MEDS: LACTATED RINGERS 1,000 ML 21 ML IV (13:01)
--- NOTE | 2023-11-11 13:30 | PM.OP.1 ---
Operative Date/Time/Diagnoses Date of procedure: 11/11/23 Time of procedure: 13:30 Pre-op diagnosis: biliary colic Post-op diagnosis: same Procedure & Clinicians Procedure: Laparoscopic cholecystectomy Same procedure as scheduled: Yes Indications: Symptomatic biliary colic Surgeon: Davy Pate Medical Physics Teacher: Harvey Abraham Anesthesia Type: General Operative Notes Findings: critical view of safety established Chronic cholecystitis Stone lodged within the neck the gallbladder Specimen(s): other Estimated Blood Loss (mL): 20 Procedure in detail: The patient was placed supine on the table and bilateral lower extremity compression devices were applied. Anesthesia was induced they were intubated with an endotracheal tube and received 2g of Ancef. A time-out was performed. They were prepped and draped in sterile fashion. An infraumbilical incision was made. The fascia was elevated incised and the abdomen was entered atraumatically. A blunt tip 12mm balloon trocar was then inserted, pneumoperitoneum was established and inspection of the abdomen demonstrated no evidence of injury. They were placed head up and right side up and then a 11 mm port was placed high in the epigastrium and two 5mm in the right upper quadrant. There was omentum adherent to the gallbladder which was taken down and stone was lodged within the neck of the gallbladderThe gallbladder was grasped by the fundus and retracted over the liver and retracted laterally by the infundibulum. Using electrocautery the lateral plane between the gallbladder and the liver was opened towards the fundus. The gallbladder was then retracted laterally and the medial plane was developed in the same manner. With the gallbladder mobilized the bottom of the cystic plate was visualized. The hepatocystic triangle was meticulosly skeletonized with blunt dissection of fat and fibrous tissue from both the front and the back. Only two structures were then clearly seen entering the gallbladder the cystic duct and the cystic artery. With the critical view of safety fully established the cystic duct was clipped twice proximally and once distally using the 10 mm Weck hemoclip applied under direct visualization and then sharply divided. The cystic artery was divided in the same fashion. The gallbladder was removed from the liver bed using electro cautery. The liver bed was then inspected for hemostasis and this was achieved. The abdomen was irrigated with sterile saline and inspection was made that showed the clips in good position. The specimen was removed using Endo-Catch. The abdomen was desufflated. The umbilical fascia was closed with 0 Vicryl in a [id number] fashion under direct visualization. Skin incisions were irrigated and closed with 4-0 Monocryl. 30 ml of 0.25% bupivacaine was infiltrated into the subcutaneous tissue of the incisions. The wounds were sealed with Dermabond. Patient emerged from anesthesia was extubated and transferred to recovery in stable condition. The sponge and instrument count at the end of the operation was correct. Complications: none Post-operative Condition: stable Disposition: same day surgery
[2023-11-11] MEDS: CEFAZOLIN 2 GM/100 ML PREMIX 100 ML IV (14:10)
--- NOTE | 2023-11-11 14:21 | SUR.OPER ---
Supine on padded OR bed, head on pillow, safety belt at thigh, left arm padded and tucked at side. Right arm secured on padded arm board <90 degrees abduction. Legs uncrossed. Padded footboard in place. Tape over blanket to secure lower legs.
[2023-11-11] MEDS: BUPIVACAINE 0.25% (PF) VIAL 30 ML INJ (14:43)
[2023-11-11] MEDS: OXYCODONE IR 5 MG TABLET PO ×2 (15:13→15:53)
[2023-11-11] MEDS: ACETAMINOPHEN 325 MG TABLET 650 MG PO (15:14)
[2023-11-11] MEDS: ONDANSETRON 4 MG/2 ML INJ IV (15:36)
== END 2023-11-11 16:00 | disposition home or self-care (01) ==
PROVIDERS: PCP Nurse Practitioner Family; Referring Provider Surgery; Visit Provider Surgery
PROC: 0FT44ZZ Resection of Gallbladder, Percutaneous Endoscopic Approach (ICD-10-PCS; CPT 47562; principal; 2023-11-11 14:00)
DX: K80.10 Calculus of gallbladder with chronic cholecystitis without obstruction (principal)
CPT/HCPCS: 47562; 82962; J0690; J1100; J1885; J2250; J2405; J2704; J3010; J3490

== ENCOUNTER → 2023-11-20 06:57 | Outpatient (CLI) | payer OTHER, SELFPAY ==
--- NOTE | 2023-11-20 06:58 | DI.CT.S_ITS ---
PROCEDURE: CT ABDOMEN PELVIS WO/W CON INDICATIONS: Asymptomatic microscopic hematuria, kidney stones TECHNIQUE: Optional 5 mm thick noncontrast images acquired from the diaphragm to the symphysis pubis. After the administration of intravenous contrast, 5 mm thick images acquired from the diaphragm to the symphysis pubis after a 10-minute delay. 2 mm thick coronal and sagittal reformats were then performed of the kidneys and ureters. For radiation dose reduction, the following was used: automated exposure control, adjustment of mA and/or kV according to patient size. COMPARISON: [facility], CT, CT ABDOMEN PELVIS WO/W CON, 04/23/2022, 17:39. FINDINGS: Image quality: Diagnostic Lower chest: Small Bochdalek's fat containing hernias. Normal heart size Liver: Unremarkable Gallbladder and biliary system: Gallbladder is not seen. There mild inflammatory changes and fluid at the cholecystectomy bed, probably postsurgical. (Recent cholecystectomy) No pathologic biliary dilation Pancreas: No ductal dilation Spleen: Nonenlarged Adrenals: No discrete nodules Kidneys: Parapelvic cysts are present. No definite solid renal mass. There is a questionable endophytic lesion within the interpolar region of the right kidney measuring 1.1 cm (5/83). No complicated lesion identified requiring dedicated follow-up. No calcified obstructing stone. No suspicious ureter filling defects identified. Vessels and lymph nodes: Atherosclerotic calcifications. No abdominal aortic aneurysm or pathologic lymph nodes by size criteria Bowel and peritoneum: No evidence of small bowel obstruction. No pathologic ascites or drainable abscess. Focal moderate inflammatory changes are seen in the left lower quadrant at the distal descending colon. Stable hyperdensity adjacent to the cecum Body wall: Tiny fat containing umbilical hernia Pelvis: Thick wall urinary bladder. Mild perivesicular fat stranding. Heterogeneously enhancing prostate is not well assessed on this study. Bones: There are degenerative changes. No acute or suspicious osseous finding. IMPRESSION: Questionable endophytic lesion in the interpolar region of the right kidney measuring 1.1 cm (see coronal image 5/83). Consider a follow up renal protocol MRI. Thick walled urinary bladder with surrounding fat stranding, correlate urinalysis and cystoscopy in the setting of hematuria. No obstructing calcified stone identified. There are parapelvic renal cysts. Incidentally noted fat stranding in the distal descending colon without abscess, probably diverticulitis. Numerous colonic diverticula are seen. Other findings above. This report was flagged in PACS for communication and follow-up. Dictated by: Poli Rodriguez M.D. on 11/20/2023 at 9:57 Approved by: Poli Rodriguez M.D. on 11/20/2023 at 10:05
== END ==
LOC: CT 06:57
PROVIDERS: PCP Nurse Practitioner Family; Referring Provider Urology; Visit Provider Urology
DX: R31.0 Gross hematuria (principal); K57.90 Diverticulosis of intestine, part unspecified, without perforation or abscess without bleeding; R39.9 Unspecified symptoms and signs involving the genitourinary system; N28.1 Cyst of kidney, acquired; Z87.442 Personal history of urinary calculi
CPT/HCPCS: 74178; Q9967

== ENCOUNTER → 2024-02-24 08:01 | Outpatient (CLI) | payer OTHER, SELFPAY ==
[2024-02-24 08:44] LABS: Estimated Glomerular Filt Rate > 60 mL/min (>60)
--- NOTE | 2024-02-24 09:10 | DI.CT.S_ITS ---
PROCEDURE: CT ABDOMEN RENAL PROTOCOL INDICATIONS: Follow-up hematuria and right renal lesion TECHNIQUE: Optional 5 mm thick noncontrast images acquired from the diaphragm to the iliac crests. After the administration of intravenous contrast, 5 mm thick images again acquired from the diaphragm to the iliac crests in the arterial and urographic phases. 5 mm thick coronal and sagittal reformats were then acquired. For radiation dose reduction, the following was used: automated exposure control, adjustment of mA and/or kV according to patient size. COMPARISON: [facility], CT, CT ABDOMEN PELVIS WO/W CON, 11/20/2023, 7:14. FINDINGS: Image quality: Diagnostic Lower chest: Probably centrilobular distribution nodule seen in the left lower lobe. Liver: Unremarkable Gallbladder and biliary system: Gallbladder is not seen, nondilated biliary system allowing for postsurgical state Pancreas: No ductal dilation Spleen: Nonenlarged Adrenals: No discrete nodules Kidneys: Confirmation of endophytic hypervascular lesion in the interpolar region of the right kidney measuring 1.2 cm, similar compared to 11/20/2023. No measurable invasion the collecting system. The right renal vein is patent. No obstructing calcified stone. There are parapelvic cysts. Vessels and lymph nodes: Atherosclerotic calcifications. The main portal vein is patent. No pathologic lymph nodes by size criteria. Bowel and peritoneum: No evidence of small bowel obstruction. No pathologic ascites. There are colonic diverticula. Body wall: Unremarkable Bones: No acute or suspicious osseous finding. IMPRESSION: Hypervascular endophytic lesion measuring 1.2 cm in the interpolar region of the right kidney, suggestive of a small RCC. This is stable and may be indolent. Close follow-up is suggested if intervention is not pursued. No calcified renal stones in the abdomen. No renal vein invasion. No pathologic lymph nodes by size criteria. Partially seen left lower lung centrilobular distribution nodules, probably infectious/inflammatory. Given possible malignancy in the kidney however, consider chest CT follow-up. Other findings above. Dictated by: Poli Rodriguez M.D. on 02/24/2024 at 14:29 Approved by: Poli Rodriguez M.D. on 02/24/2024 at 14:35
== END ==
PROVIDERS: Radiology Diagnostic Radiology; PCP Nurse Practitioner Family; Referring Provider Urology; Visit Provider Urology
DX: N28.9 Disorder of kidney and ureter, unspecified (principal); R31.21 Asymptomatic microscopic hematuria; N28.1 Cyst of kidney, acquired; R91.8 Other nonspecific abnormal finding of lung field
CPT/HCPCS: 36415; 74170; 82565; Q9967

== ENCOUNTER → 2024-03-24 06:56 | Outpatient (CLI) | payer OTHER, SELFPAY ==
--- NOTE | 2024-03-24 06:58 | DI.RAD.S_ITS ---
PROCEDURE: XR CHEST 1V INDICATIONS: Pulmonary nodules insurance denying CT TECHNIQUE: One view of the chest was acquired. COMPARISON: None. FINDINGS: Surgical changes and devices: None. Lungs and pleura: There is either a large bleb or an atypical pneumothorax in the right lung apex. No infiltrates Mediastinum: Mediastinal contours appear normal. Heart size is normal. Bones and chest wall: No suspicious bony lesions. Overlying soft tissues appear unremarkable. IMPRESSION: Potential 10% right apical pneumothorax versus a large bleb. Consider chest CT both to evaluate this finding and the pulmonary nodules. Dictated by: Blanco Ramos M.D. on 03/24/2024 at 11:38 Approved by: Blanco Ramos M.D. on 03/24/2024 at 11:45
== END ==
PROVIDERS: PCP Nurse Practitioner Family; Referring Provider Urology; Visit Provider Urology
DX: R91.8 Other nonspecific abnormal finding of lung field (principal)
CPT/HCPCS: 71045

== ENCOUNTER → 2024-03-26 11:49 | Outpatient (CLI) | payer OTHER, SELFPAY ==
--- NOTE | 2024-03-26 11:49 | DI.CT.S_ITS ---
PROCEDURE: CT CHEST W CON INDICATIONS: Evaluate chest nodules incidentally noted TECHNIQUE: After the administration of intravenous contrast, 5 mm thick sections acquired from the pulmonary apices to the posterior costophrenic angles. 1 mm axial lung, 5 mm thick coronal and sagittal reformats and 7 mm axial MIP were acquired. For radiation dose reduction, the following was used: automated exposure control, adjustment of mA and/or kV according to patient size. COMPARISON: [facility], CR, XR CHEST 1V, 03/24/2024, 7:12. FINDINGS: Image quality: Diagnostic. Lower Neck: No enlarged lymph nodes. Thyroid: No thyroid nodules which require sonographic follow up, per consensus guidelines. Axillae: No enlarged lymph nodes. Chest Wall: Unremarkable. Bones: Unremarkable. Lungs and Pleura: No pneumothorax or pleural effusions. No consolidation or suspicious nodules. There is linear scarring with a small amount of internal calcification at the posterior left lung apex. The segmental anatomy of the right lung is distorted, with the right upper lobe relatively small and positioned medially, with hyperexpansion of the right lower lobe and right middle lobe. Heart: Heart size is normal. No pericardial effusion. Thoracic Vessels: The aorta and pulmonary arteries demonstrate normal size. Mediastinum and Miroslava: No enlarged lymph nodes. Esophagus: No wall thickening. No hiatal hernia. Upper Abdomen: Visualized upper abdomen solid organs and bowel loops appear normal. IMPRESSION: No lung nodules found. Lung scarring posterior left apex. Minimal nonspecific patchy areas of alveolar prominence at the left lower lobe. Distorted right lung segmental anatomy as discussed above. This may represent a congenital variant. Dictated by: Romie Jean M.D. on 03/26/2024 at 15:13 Approved by: Romie Jean M.D. on 03/26/2024 at 15:20
== END ==
PROVIDERS: PCP Nurse Practitioner Family; Referring Provider Urology; Visit Provider Urology
DX: J98.4 Other disorders of lung (principal); R91.8 Other nonspecific abnormal finding of lung field
CPT/HCPCS: 71260; Q9967

== ENCOUNTER → 2024-08-18 09:07 | Outpatient (CLI) | payer OTHER, SELFPAY ==
--- NOTE | 2024-08-18 09:08 | DI.CT.S_ITS ---
PROCEDURE: CT ABDOMEN RENAL PROTOCOL INDICATIONS: Right renal lesion TECHNIQUE: Optional 5 mm thick noncontrast images acquired from the diaphragm to the iliac crests. After the administration of intravenous contrast, 5 mm thick images again acquired from the diaphragm to the iliac crests in the arterial and urographic phases. 5 mm thick coronal and sagittal reformats were then acquired. For radiation dose reduction, the following was used: automated exposure control, adjustment of mA and/or kV according to patient size. COMPARISON: [facility], CT, CT ABDOMEN RENAL PROTOCOL, 02/24/2024, 9:06. FINDINGS: Image quality: Diagnostic. Kidneys and Ureters: No hydronephrosis. Hypervascular lesion in the midpole of left kidney is increased in size measuring 1.5 centimeter in the current study. No discernible invasion of the renal vein or genitourinary collecting system Stable simple left parapelvic cysts. No complex renal cystic lesion which requires follow up. OTHER: Lower chest: Left lower lobe nodules have resolved and likely reflected inflammatory process. Lung bases are clear in the current study. Liver: No solid mass. Mild, diffuse fatty infiltration of the liver. Gallbladder: Gallbladder is surgically absent. Biliary ducts: No biliary dilation. Pancreas: No ductal dilation. Spleen: Size is within normal limits. Adrenal Glands: No adrenal nodules. Stomach and Bowel: Normal colonic caliber, without significant wall thickening. Peritoneum: No abnormal intraperitoneal fluid. No free air. Ventral Wall: No hernia. Abdominal Nodes: No retroperitoneal or mesenteric adenopathy by size criteria. Vessels: Aorta and inferior vena cava are normal in size. Scattered atherosclerotic calcifications involving the abdominal vasculature. Bones: No aggressive osseous abnormality. Spine degenerative disc disease and facet arthropathy. IMPRESSION: 1.5 centimeter hypervascular lesion in the midpole of the left kidney slightly increased in size compared to February 24, 2024. Dictated by: Cornelia Woods MD, PhD on 08/18/2024 at 11:34 Approved by: Cornelia Woods MD, PhD on 08/18/2024 at 11:42
== END ==
PROVIDERS: PCP Nurse Practitioner Family; Referring Provider Urology; Visit Provider Urology
DX: N28.9 Disorder of kidney and ureter, unspecified (principal); I70.90 Unspecified atherosclerosis; K76.0 Fatty (change of) liver, not elsewhere classified; Z90.49 Acquired absence of other specified parts of digestive tract
CPT/HCPCS: 74170; Q9967

== ENCOUNTER → 2024-11-15 09:38 | Outpatient (CLI) | payer OTHER, SELFPAY ==
--- NOTE | 2024-11-15 09:43 | DI.RAD.S_ITS ---
PROCEDURE: XR HIP W PEL IF DONE RT 2V INDICATIONS: R SIDE LOW BACK PAIN TECHNIQUE: AP pelvis with lateral view(s) of the right hip(s). COMPARISON: [facility], CT, CT ABDOMEN RENAL PROTOCOL, 08/18/2024, 9:25. FINDINGS: Bones: No fractures or dislocations. Mild bilateral hip joint osteoarthritic changes are seen. No evidence of avascular necrosis of femoral head. Pelvic ring appears intact. No suspicious bony lesions. Soft tissues: The visualized bowel gas pattern is normal. No suspicious soft tissue calcifications. IMPRESSION: Symmetric appearing mild bilateral hip joint osteoarthritis. No pelvic or hip fracture. No evidence of avascular necrosis. Dictated by: Keanu Davis M.D. on 11/15/2024 at 10:59 Approved by: Keanu Davis M.D. on 11/15/2024 at 11:00
--- NOTE | 2024-11-15 09:43 | DI.RAD.S_ITS ---
PROCEDURE: XR LUMBAR SPINE 2-3V INDICATIONS: R SIDE LOW BACK PAIN TECHNIQUE: 3 views of the lumbar spine were acquired. COMPARISON: None. FINDINGS: Bones: 5 [id number] vertebrae are present. There is mild rightward curvature of lumbar spine with apex at L2 level. Loss of disc height, degenerative endplate changes and mild bilateral facet arthrosis throughout lumbar spine is seen.. No vertebral body compression fractures. No suspicious bony lesions. Soft tissues: Overlying bowel gas pattern is normal. No suspicious soft tissue calcifications. IMPRESSION: Mild spondylitic changes throughout lumbar spine. Mild dextroscoliosis as above. No acute vertebral body compression fracture. Dictated by: Keanu Davis M.D. on 11/15/2024 at 10:52 Approved by: Keanu Davis M.D. on 11/15/2024 at 10:59
== END ==
LOC: RAD 09:40
PROVIDERS: PCP Physician Assistant; Referring Provider Physician Assistant; Visit Provider Physician Assistant
DX: E87.1 Hypo-osmolality and hyponatremia (principal); G89.29 Other chronic pain; M54.41 Lumbago with sciatica, right side; M41.86 Other forms of scoliosis, lumbar region; M47.816 Spondylosis without myelopathy or radiculopathy, lumbar region; M16.0 Bilateral primary osteoarthritis of hip
CPT/HCPCS: 72100; 73502

== ENCOUNTER 2025-01-16 04:00 | Emergency (ER) | payer OTHER, SELFPAY ==
--- NOTE | 2025-01-16 04:03 | ED.BACK ---
HPI - Back Pain/Injury General Chief Complaint: Back Pain/Injury Stated Complaint: Severe RT side sciatic pain Time Seen by Provider: 01/16/25 04:03 History of Present Illness HPI Narrative: Patient is a 59-year-old male with past medical history of low back pain, hyperlipidemia hypothyroidism coming into the ED from home for evaluation of exacerbation of his low back pain,patient has a history of low back pain is currently in pain management for this, he states that he has been doing okay over the past several months but on Friday he did ?strained his back at work patient denies any trauma or falls, denies any numbness weakness tingling to the lower extremity denies any bowel or urinary incontinence or retention denies any saddle paresthesias, he denies any other symptoms such as headache visual disturbance chest pain shortness breath fever chills nausea vomiting abdominal pain or any other GI/ symptoms time. Related Data Home Medications ?Medication ?Instructions ?Recorded ?Confirmed VITAMIN D (Vitamin D3) 1,000 units PO QDAY ##0 06/26/16 12/22/24 atorvastatin 20 mg tablet 20 mg PO DAILY 04/04/22 12/22/24 magnesium 200 mg tablet 200 mg PO DAILY 08/22/22 12/22/24 levothyroxine 100 mcg capsule 100 mcg PO DAILY 11/06/23 12/22/24 losartan 100 mg tablet 100 mg PO DAILY 11/06/23 12/22/24 multivitamin 1 tab PO DAILY 11/06/23 12/22/24 aspirin 81 mg tablet,delayed 81 mg PO DAILY 11/28/23 12/22/24 release (Adult Aspirin Regimen) amlodipine 2.5 mg tablet 2.5 mg PO DAILY 12/22/24 12/22/24 Previous Rx's ?Medication ?Instructions ?Recorded diazepam 5 mg tablet (Valium) 5 mg PO BEDTIME PRN muscle spasm 5 01/16/25 days #5 tabs methylprednisolone 4 mg tablets in See Rx Instructions PO .COMPLEX 01/16/25 a dose pack (Medrol (Reyes)) #21 ea oxycodone-acetaminophen 5 mg-325 1 tab PO Q8H PRN pain 3 days #9 01/16/25 mg tablet (Percocet) tabs Allergies Allergy/AdvReac Type Severity Reaction Status Date / Time No Known Drug Allergies Allergy Verified 01/16/25 04:07 Review of Systems Review of Systems Narrative: General: Denies fever, chills, weight loss HEENT: Denies headache, eye drainage, eye irritation, head trauma, sore throat, voice change Cardiovascular: Denies any chest pain, palpitations, tachycardia Respiratory: Denies any shortness of breath, cough, wheeze, stridor GI/: Denies any abdominal pain, nausea, vomiting, diarrhea, bright red blood per rectum, melanotic stools, urinary frequency, urinary retention, dysuria, hematuria MSK: Positive low back pain, Denies any joint pain, muscle pains, swelling Skin: Denies any rashes, lesions, discoloration Neuro: Denies any headache, lightheadedness, dizziness, fainting, weakness Psych: Denies SI/HI Patient History Medical History (Updated 01/16/25 @ 04:14 by Dejuan Bishop DO) Low back pain Pulmonary nodules Lesion of right [place] kidney History of radiation therapy History of chemotherapy Non-Hodgkin's lymphoma Hypertension Asymptomatic microscopic hematuria Lower urinary tract symptoms History of kidney stones History of urinary tract infection Gross hematuria Kidney stones Hyperlipemia Cancer Hypothyroid Surgical History H/O stem cell transplant Family History Father Hearing impairment Heart disease Social History marital status: unmarried,single details: Pt. lives with his brother. number of children: 0 household members: family lives independently: Yes occupational status: employed alcohol intake: current substance use type: does not use tobacco type: smokeless tobacco alcohol intake frequency: holidays/special occasions only Alcohol type: beer Exam Narrative Exam Narrative: General: Cooperative, well-developed, not in acute distress HEENT: Normocephalic, atraumatic, PERRLA, normal sclera, eyelids normal Neck: Active full range of motion, atraumatic Chest: Normal to inspection, negative crepitus, no overlying erythema ecchymosis Respiratory: Normal respiratory effort, not in acute respiratory distress, clear to auscultation bilaterally negative cough, wheeze, tachypnea, rhonchi, rales Cardiology: Regular rate rhythm negative gallop, murmur, rubs GI/: No tenderness to palpation, soft, non rigid, normal to inspection, exam deferred MSK: Full active range of motion in all 4 extremities, atraumatic, no tenderness to palpation of any bony prominences, patient is neurovascularly intact to bilateral lower extremities he is able to stand bear weight ambulate unassisted here in the emergency department, he has no tenderness to palpation of the midline spine, he has reproducible pain to the right gluteal region Skin: No rashes or lesions noted Neuro: Alert awake oriented x3, moves all 4 extremities spontaneously, cranial nerves intact, able to answer all questions appropriately follows commands appropriately Psych: Cooperative, negative suicidal or homicidal ideations MDM - Back Pain/Injury MDM Narrative Medical decision making narrative: 59-year-old male with a past medical history of hypertension hyperlipidemia hypothyroidism low back pain comes into the ED from home for evaluation of exacerbation of low back pain. Patient states he does have a history of this 1st injured his back in June has been following up with his pain management doctor last saw them a few months ago states he has been doing okay after physical therapy however he states that on Friday he did strain his back at work, he denies any red flags for cauda equina, he is able to stand bear weight ambulate unassisted, patient states this is the same thing that happens whenever he ?throws out his back/does something stupid he denies trauma or falls he is neurovascularly intact to his lower extremities otherwise. Patient stating that he just wants some medication to help with his symptoms, he states that normally this just requires ?time and physical therapy given the fact that patient presenting with similar symptoms to his history of low back pain nontraumatic without any red flags no indication for imaging at this time. 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 Patient verbalized understanding of this and agrees to being discharged home with outpatient follow up Review of records does show that patient is sees pain management, last saw them on 12/22/2024, pain started in June after lifting a heavy box at work, he has had history of chiropractic treatment and has been intermittently and physical therapy with some mild improvement, patient has had x-rays of his back and plan is to continue PT and consider MRI of the lumbar spine with injection therapy if not improving Discharge Plan Departure Patient Disposition: Home Clinical Impression: Acute exacerbation of chronic low back pain Activity Restrictions/Additional Instructions: Please follow up with your primary care doctor and your pain management doctor Please read the discharge instructions sheet carefully and bring all papers to all doctor follow-up visits, as it may contain information that your doctor may want to see. Disease processes change and evolve, if your symptoms worsen or if you develop any new symptoms that are concerning to you please return for evaluation. Your evaluation today does not show any evidence of any life-threatening/serious illnesses requiring admission to the hospital or surgery. Please follow-up with your doctor for re-evaluation in approximately 1 day. Seek immediate medical attention for any worrisome symptoms. *If you do not have a primary care provider please contact the [facility] Resource line at [phone]. They will ask some questions about your medical history and help get you set up with a doctor in the community. Prescriptions: New oxycodone-acetaminophen [Percocet] 5-325 mg tablet 1 tab PO Q8H PRN (Reason: pain) 3 Days Qty: 9 0RF methylprednisolone [Medrol (Reyes)] 4 mg tablets,dose pack See Rx Instructions .ROUTE .COMPLEX Qty: 21 0RF Rx Instructions: for 6 days diazepam [Valium] 5 mg tablet 5 mg PO BEDTIME PRN (Reason: muscle spasm) 5 Days Qty: 5 0RF No Action VITAMIN D (Vitamin D3) 1,000 units PO QDAY Qty: 0 losartan 100 mg tablet 100 mg PO DAILY levothyroxine 100 mcg capsule 100 mcg PO DAILY multivitamin Tablet 1 tab PO DAILY amlodipine 2.5 mg tablet 2.5 mg PO DAILY atorvastatin 20 mg tablet 20 mg PO DAILY magnesium 200 mg tablet 200 mg PO DAILY aspirin [Adult Aspirin Regimen] 81 mg tablet,delayed release (DR/EC) 81 mg PO DAILY Referrals: Rosina Chang PA-C [Primary Care Provider, Medical] Stand Alone Forms: Patient Portal/API
[2025-01-16 04:07] VITALS: BP 150/91; PULSE 110; RESP 18; TEMP 36.6; O2SAT 100; BMI 24.4
[2025-01-16] MEDS: KETOROLAC 30 MG/ML VIAL IM (04:17)
== END 2025-01-16 04:33 | disposition home or self-care (01) ==
PROVIDERS: Emergency Provider Student in an Organized Health Care Education/Training Program; PCP Physician Assistant
DX: M54.50 Low back pain, unspecified (principal); G89.29 Other chronic pain
CPT/HCPCS: 96372; 99283; J1100; J1885